=== PATIENT | female | born 1975 | race Caucasian/White ===

== ENCOUNTER 2017-03-12 17:56 | Emergency (ER) | payer SELFPAY ==
[2017-03-12] MEDS ORDERED: ONDANSETRON 4 MG TAB.RAPDIS PO ONE (18:15)
[2017-03-12] MEDS ORDERED: OXYCODONE-ACETAMINOPHEN 5-325 MG TABLET PO ONE (18:15)
--- NOTE | 2017-03-12 18:15 | ER Document Report ---
HPI - HPI Patient complains to provider of: Back pain Onset: This afternoon - 3:30 PM Onset/Duration: Sudden Pain Level: 5 Context: 41-year-old female with a history of chronic back pain exacerbated her back pain "tweaking it" at 3:30 PM today when she did heavy lifting of crates full of beer. She takes naproxen or Motrin for pain on a daily basis. There is no saddle anesthesia or radiculopathy. No fever. No IV drug use. She had compression fractures of T67 on June 2016 doing the same type of work. The pain that she feels today is above the coccyx Associated Symptoms: None Exacerbated by: Movement Relieved by: Denies Similar symptoms previously: Yes Recently seen / treated by doctor: No - ROS ROS below otherwise negative: Yes Systems Reviewed and Negative: Yes All other systems reviewed and negative - REPRODUCTIVE Reproductive: DENIES: : - DERM Skin Color: Normal Past Medical History - General Information source: Patient - Social History Smoking Status: Current Every Day Smoker Frequency of alcohol use: Heavy Drug Abuse: Marijuana Lives with: Spouse/Significant other Family History: Reviewed & Not Pertinent Patient has suicidal ideation: No Patient has homicidal ideation: No Pulmonary Medical History: Reports: Hx Asthma, Hx COPD Renal/ Medical History: Reports: Hx Kidney Stones. Denies: Hx Peritoneal Dialysis Traumatic Medical History: Reports: Hx Fractures - C6C7, BACK IN 3 SPOTS, Hx Traumatic Brain Injury Past Surgical History: Reports: Hx Section, Hx Kidney (Renal Surgery), Hx Orthopedic Surgery, Hx Tubal Ligation - Immunizations Hx Diphtheria, Pertussis, Tetanus Vaccination: Yes Vertical Provider Document - CONSTITUTIONAL Agree With Documented VS: Yes Exam Limitations: No Limitations - INFECTION CONTROL TRAVEL OUTSIDE OF THE [place] IN LAST 30 DAYS: No - HEENT HEENT: Atraumatic, Normocephalic - NECK Neck: Supple - RESPIRATORY Respiratory: Breath Sounds Normal, No Respiratory Distress O2 Sat by Pulse Oximetry: 96 - CARDIOVASCULAR Cardiovascular: Regular Rate, Regular Rhythm - GI/ABDOMEN Gastrointestinal: Abdomen Soft, Abdomen Non-Tender - MUSCULOSKELETAL/EXTREMETIES Musculoskeletal/Extremeties: MACY FROM Notes: supine, holding her body muscles tense with flexed knees in pain - NEURO Level of Consciousness: Awake, Alert Motor/Sensory: No Motor Deficit, No Sensory Deficit Deep Tendon Reflexes: 2+ - Bilateral ankle and patellar - DERM Integumentary: Warm, Dry, No Rash Course - Re-evaluation Re-evalutation: 03/12/17 19:37 X-ray shows decreased disc space height between L4-L5 radiology. 03/12/17 19:44 pain 3/5 now, feels better. Has been upt to bathroom - Vital Signs Vital signs: Temp Pulse Resp BP Pulse Ox 98.1 F 96 18 148/85 H 96 03/12/17 18:03 03/12/17 18:03 03/12/17 18:03 03/12/17 18:03 03/12/17 18:03 Discharge - Discharge Clinical Impression: Lumbar back sprain Qualifiers: Encounter type: initial encounter Qualified Code(s): S33.5XXA - Sprain of ligaments of lumbar spine, initial encounter Instructions: Low Back Pain ([facility]), Muscle Relaxers ([facility]), Muscle Strain ([facility]), Warm Packs ([facility]), Oral Narcotic Medication ([facility]), Anti-Inflammatory Medication ( [facility]) Additional Instructions: warm compress to er if worse see orhtopedic doctor if persists Please complete the patient satisfaction survey if you get one, and return it.. If you do not receive a survey, then you can go to the [facility] website, [email or web address] and place your comments about your very good care. Thank you very much. It was a pleasure being your medical provider today. Prescriptions: Ibuprofen [Motrin 800 mg Tablet] 800 mg PO Q8HP PRN #30 tablet PRN Reason: Cyclobenzaprine HCl [Flexeril 10 Mg Tablet] 10 mg PO TIDP PRN #20 tablet PRN Reason: Oxycodone HCl/Acetaminophen [Percocet 5-325 mg Tablet] 1 - 2 tab PO ASDIR PRN # 15 tablet PRN Reason: Forms: Return to Work Referrals: MALAIKA BEDOLLA MD [NO LOCAL MD] - Follow up as needed
[2017-03-12] MEDS ORDERED: CYCLOBENZAPRINE HCL 10 MG TABLET PO ONE (18:17)
--- NOTE | 2017-03-12 19:31 | RADIOLOGY REPORT (SQ) ---
EXAM DESCRIPTION: L SPINE WHOLE COMPLETED DATE/TIME: 03/12/2017 7:12 pm REASON FOR STUDY: pain after heavy lifting COMPARISON: None. NUMBER OF VIEWS: Five views including obliques. TECHNIQUE: AP, lateral, oblique, and sacral radiographic images acquired of the lumbar spine. LIMITATIONS: None. FINDINGS: MINERALIZATION: Normal. SEGMENTATION: Normal. No transitional anatomy. ALIGNMENT: Normal. VERTEBRAE: Maintained height. No fracture or worrisome bone lesion. DISCS: There is some mild decrease in the L4-L5 disc space height. POSTERIOR ELEMENTS: Pedicles and facets are intact. No pars defect or posterior arch defects. HARDWARE: None in the spine. PARASPINAL SOFT TISSUES: Normal. PELVIS: Intact as visualized. No fractures or worrisome bone lesions. SI joints intact. OTHER: No other significant finding. IMPRESSION: Mild decrease in the L4-L5 disc space height. No other significant findings TECHNICAL DOCUMENTATION: JOB ID: [id number] [facility]- All Rights Reserved
[2017-03-12 19:54] VITALS: BP 130/78
== END 2017-03-12 19:52 | disposition home or self-care (01) ==
LOC: ER 17:56
DX: S33.5XXA Sprain of ligaments of lumbar spine, initial encounter (principal); M54.9 Dorsalgia, unspecified; G89.29 Other chronic pain; X58.XXXA Exposure to other specified factors, initial encounter
CPT/HCPCS: 99283; 72110; S0119

== ENCOUNTER 2017-09-28 09:47 | Emergency (ER) | payer SELFPAY ==
[2017-09-28] MEDS ORDERED: NORMAL SALINE 1000 ML 1,000 ML IV ONE (10:06)
--- NOTE | 2017-09-28 10:08 | ER Document Report ---
ED Medical Screen (RME) - General Chief Complaint: Flu Symptoms Stated Complaint: FLU SYMPTOMS Time Seen by Provider: 09/28/17 10:05 Mode of Arrival: Ambulatory Information source: Patient TRAVEL OUTSIDE OF THE [place] IN LAST 30 DAYS: No - HPI Patient complains to provider of: flu symptoms Onset: Yesterday - pt with c/o cough, fever, chills. Thinks she may be dehydrated - Related Data Allergies/Adverse Reactions: No Known Allergies Allergy (Verified 09/28/17 09:54) Past Medical History - Social History Chew tobacco use (# tins/day): No Frequency of alcohol use: Occasional Drug Abuse: Marijuana Pulmonary Medical History: Reports: Hx Asthma, Hx COPD Renal/ Medical History: Reports: Hx Kidney Stones. Denies: Hx Peritoneal Dialysis Traumatic Medical History: Reports: Hx Fractures - C6C7, BACK IN 3 SPOTS, Hx Traumatic Brain Injury Past Surgical History: Reports: Hx Section, Hx Kidney (Renal Surgery), Hx Orthopedic Surgery, Hx Tubal Ligation - Immunizations Hx Diphtheria, Pertussis, Tetanus Vaccination: Yes
[2017-09-28] MEDS ORDERED: KETOROLAC TROMETHAMINE INJ/PF 30 MG/1 ML SDV IV ONE (10:52)
[2017-09-28] MEDS ORDERED: ONDANSETRON HCL INJ/PF 4 MG/2 ML SDV IV ONE (10:52)
--- NOTE | 2017-09-28 10:57 | RADIOLOGY REPORT (SQ) ---
EXAM DESCRIPTION: CHEST PA/LAT COMPLETED DATE/TIME: 09/28/2017 10:50 am REASON FOR STUDY: cough COMPARISON: 02/13/2014. EXAM PARAMETERS: NUMBER OF VIEWS: two views TECHNIQUE: Digital Frontal and Lateral radiographic views of the chest acquired. RADIATION DOSE: NA LIMITATIONS: none FINDINGS: LUNGS AND PLEURA: Indistinct density in the medial right upper lobe with vague nodularity in the right apex. Left lung clear. No pleural effusion or pneumothorax. MEDIASTINUM AND HILAR STRUCTURES: No masses or contour abnormalities. HEART AND VASCULAR STRUCTURES: Heart normal size. No evidence for failure. BONES: No acute findings. HARDWARE: None in the chest. OTHER: No other significant finding. IMPRESSION: POSSIBLE INFILTRATE AND/OR MASS IN THE RIGHT UPPER LOBE. RECOMMEND FOLLOW-UP WITH CT OF THE CHEST. TECHNICAL DOCUMENTATION: JOB ID: [id number] [employer]- All Rights Reserved
[2017-09-28 10:58] LABS: ABSOLUTE LYMPHOCYTES (AUTO) 0.5 10^3/uL (0.5-4.7); ABSOLUTE MONOCYTES (AUTO) 0.6 10^3/uL (0.1-1.4); ABSOLUTE NEUT (AUTO) 2.9 10^3/uL (1.7-8.2); BASOPHILS % (AUTO) 0.3 % (0-2); EOSINOPHILS % (AUTO) 0.1 % (0-6); HEMATOCRIT 41.7 % (36.0-47.0); HEMOGLOBIN 14.4 g/dL (12.0-15.5); LYMPHOCYTES % (AUTO) 13.5 % (13-45); MEAN CORPUSCULAR HEMOGLOBIN 32.9 pg (27.0-33.4); MEAN CORPUSCULAR HGB CONC 34.6 g/dL (32.0-36.0); MEAN CORPUSCULAR VOLUME 95 fl (80-97); MONOCYTES % (AUTO) 13.7 % (3-13); PLATELET COUNT 160 10^3/uL (150-450); RED BLOOD COUNT 4.38 10^6/uL (3.72-5.28); RED CELL DISTRIBUTION WIDTH 12.7 % (11.5-14.0); SEGMENTED NEUTROPHILS % (AUTO) 72.4 % (42-78); TOTAL CELLS COUNTED % (AUTO) 100 %; WHITE BLOOD COUNT 4.1 10^3/uL (4.0-10.5)
[2017-09-28 11:04] LABS: ALANINE AMINOTRANSFERASE 22 U/L (9-52); ALBUMIN 4.3 g/dL (3.5-5.0); ALKALINE PHOSPHATASE 41 U/L (38-126); ANION GAP 8 (5-19); ASPARTATE AMINO TRANSFERASE 33 U/L (14-36); BILIRUBIN,DIRECT 0.6 mg/dL (0.0-0.4); BILIRUBIN,TOTAL 0.7 mg/dL (0.2-1.3); BLOOD UREA NITROGEN 9 mg/dL (7-20); CALCIUM 9.6 mg/dL (8.4-10.2); CARBON DIOXIDE 23 mmol/L (22-30); CHLORIDE 105 mmol/L (98-107); GLUCOSE 95 mg/dL (75-110); POTASSIUM 4.2 mmol/L (3.6-5.0); SODIUM 136.3 mmol/L (137-145); TOTAL PROTEIN 7.2 g/dL (6.3-8.2)
--- NOTE | 2017-09-28 11:08 | ER Document Report ---
ED General - General Chief Complaint: Flu Symptoms Stated Complaint: FLU SYMPTOMS Time Seen by Provider: 09/28/17 10:05 Mode of Arrival: Ambulatory Information source: Patient Notes: Patient presents emergency department with flulike symptoms for the past few days. Patient reports nausea vomiting diarrhea and headache. Denies fever. Reports she is does not believe in the flu vaccine. Works at [email or web address]. Patient reports her whole body hurts. She reports she attempted to eat twice yesterday but was unable to. TRAVEL OUTSIDE OF THE [place] IN LAST 30 DAYS: No - HPI Onset: Other Onset/Duration: Persistent Quality of pain: Achy Severity: Severe Pain Level: 4 Associated symptoms: Diarrhea, Nausea, Vomiting Exacerbated by: Denies Relieved by: Denies Similar symptoms previously: No Recently seen / treated by doctor: No - Related Data Allergies/Adverse Reactions: No Known Allergies Allergy (Verified 09/28/17 09:54) Past Medical History - General Information source: Patient Last Menstrual Period: 09/04/17 - Social History Smoking Status: Current Every Day Smoker Cigarette use (# per day): Yes Chew tobacco use (# tins/day): No Smoking Education Provided: Yes Frequency of alcohol use: Occasional Drug Abuse: Marijuana Occupation: [employer] Lives with: Friend Family History: Reviewed & Not Pertinent Patient has suicidal ideation: No Patient has homicidal ideation: No Pulmonary Medical History: Reports: Hx Asthma, Hx COPD Renal/ Medical History: Reports: Hx Kidney Stones. Denies: Hx Peritoneal Dialysis Traumatic Medical History: Reports: Hx Fractures - C6C7, BACK IN 3 SPOTS, Hx Traumatic Brain Injury Past Surgical History: Reports: Hx Section, Hx Kidney (Renal Surgery), Hx Orthopedic Surgery, Hx Tubal Ligation - Immunizations Hx Diphtheria, Pertussis, Tetanus Vaccination: Yes History of Influenza Vaccine for 05/2017 - 10/2017 Season: No Review of Systems - Review of Systems Notes: Review HPI for review of systems., All other systems negative Physical Exam - Vital signs Vitals: Temp Pulse Resp BP Pulse Ox 100.8 F H 109 H 22 H 132/86 H 94 09/28/17 09:56 09/28/17 09:56 09/28/17 09:56 09/28/17 09:56 09/28/17 09:56 - Notes Notes: PHYSICAL EXAMINATION: GENERAL: Looks like she doesn't feel well, nontoxic looking HEAD: Atraumatic, normocephalic. EYES: Pupils equal round extraocular movements intact, sclera anicteric, conjunctiva are normal. ENT: nares patent, Moist mucous membranes. NECK: Normal range of motion, supple without lymphadenopathy LUNGS: CTAB and equal. No wheezes rales or rhonchi. HEART: Regular rate and rhythm without murmurs ABDOMEN: Soft, no tenderness. No guarding, no rebound EXTREMITIES: Normal range of motion, no pitting edema. No cyanosis. NEUROLOGICAL: Cranial nerves grossly intact. Normal sensory/motor exams. PSYCH: Normal mood, normal affect. SKIN: Warm, Dry, normal turgor, no rashes or lesions noted Course - Re-evaluation Re-evalutation: 09/28/17 11:05 Fluids going, torodol and zofran ordered. 09/28/17 12:43 Drinking p.o. fluids, labs unremarkable 09/28/17 13:14 Taking p.o. fluids no further vomiting. Patient will be discharged home with antinausea medicine instructed on pushing fluids. CT of chest 7mm nodule, possible focal scarring. pt to be instructed on importance of fu, recheck - Vital Signs Vital signs: Temp Pulse Resp BP Pulse Ox 99.3 F 78 22 H 105/69 97 09/28/17 13:50 09/28/17 13:50 09/28/17 13:20 09/28/17 13:50 09/28/17 13:50 100.8- 109- 132/86, 22 94% - Laboratory Result Diagrams: 09/28/17 10:24 09/28/17 10:24 Laboratory results interpreted by me: 09/28/17 09/28/17 09/28/17 10:24 10:24 11:35 Monocytes % 13.7 H Sodium 136.3 L Direct Bilirubin 0.6 H Urine Protein 30 H Urine Ketones TRACE H Urine Blood SMALL H Ur Leukocyte Esterase TRACE H - Diagnostic Test Radiology reviewed: Image reviewed, Reports reviewed Discharge - Discharge Clinical Impression: Flu-like symptoms, Nausea vomiting and diarrhea Condition: Stable Disposition: HOME, SELF-CARE Instructions: Acetaminophen, Antinausea Medication ([facility]), Diarrhea, Nonspecific ([facility]), Influenza ([facility]), Intravenous (IV) Fluids ([facility]), Vomiting ([facility] ) Additional Instructions: *You have been evaluated for flu like symptoms, headache, nausea vomiting diarrhea *Increase fluid intake as discussed *Take medication as prescribed *Monitor your temperature, take Tylenol as indicated *Take over the counter anti diarrheal as indicated *Stop smoking *Follow up with a primary care provider within 3 days *A7mm nodule was discovered on your CT of the chest. This appears to be due to scarring. You will need a repeat chest xray within 6 months. Follow up with a primary care provider for recheck and evaluation. *Return to ED for worsening condition, changes, needs, concerns. Monitor your blood pressure. Your blood pressure was elevated today. This may be because you were anxious, in pain or because you need medication. It is important to follow up with your primary care provider for full evaluation. Prescriptions: Ondansetron [Zofran Odt 4 mg Tablet] 1 - 2 tab PO Q4H #10 tab.rapdis Forms: Elevated Blood Pressure, Smoking Cessation Education, Return to Work
--- NOTE | 2017-09-28 12:33 | RADIOLOGY REPORT (SQ) ---
EXAM DESCRIPTION: CT CHEST WITH COMPLETED DATE/TIME: 09/28/2017 12:10 pm REASON FOR STUDY: ?mass COMPARISON: Chest x-ray dated 09/28/2017. TECHNIQUE: CT scan of the chest performed using helical scanning technique with dynamic intravenous contrast injection. Images reviewed with lung, soft tissue and bone windows. Reconstructed coronal and sagittal MPR images reviewed. Additional 3 dimensional post-processing performed to develop Maximal Intensity Projection images (GA P). All images stored on PACS. All CT scanners at this facility use dose modulation, iterative reconstruction, and/or weight based d osing when appropriate to reduce radiation dose to as low as reasonably achievable (ALARA). [facility]: Dose Right [facility]: CareDose [facility]: Dose Right [facility]: Teradose 4D [facility]: [employer] CONTRAST TYPE AND DOSE: contrast/concentration: Isovue 370.00 mg/ml; Total Contrast Delivered: 80.0 ml; Total Saline Delivered: 55.0 ml Contrast bolus adequate for pulmonary arteries and aorta. RENAL FUNCTION: BUN 9 creatinine 0.92. RADIATION DOSE: CT Rad equipment meets quality standard of care and radiation dose reduction techniq ues were employed. CTDIvol: 5.0 mGy. DLP: 213 mGy-cm. . LIMITATIONS: None. FINDINGS: LUNGS AND PLEURA: Minimal scarring in the lung apices. 7 mm nodule in the lateral right u pper lobe. No focal infiltrate. No pleural effusion or pleural thickening. No pneumothorax. AORTA AND GREAT VESSELS: No aneurysm. No dissection. HEART: No pericardial effusion. No significant coronary artery calcifications. PULMONARY ARTERIES: No emboli visualized in the main pulmonary arteries or the segmental branches. HILAR AND MEDIASTINAL STRUCTURES: No identified masses or abnormal nodes. HARDWARE: None in the chest. UPPER ABDOMEN: No significant findings. Limited exam. THYROID AND OTHER SOFT TISSUES: No masses. No adenopathy. BONES: No acute or significant finding. 3D MIPS: Confirm above findings. OTHER: No other significant finding. IMPRESSION: 1. MINIMAL SCARRING IN THE LUNG APICES. 7 MM NODULE IN THE LATERAL RIGHT UPPER LOBE. THIS MAY REPRE SENT A FOCAL AREA OF SCARRING. FOLLOW-UP CLINICALLY INDICATED. 2. NO MASS OR INFILTRATE IN THE MEDIAL RIGHT UPPER LOBE/RIGHT PARATRACHEAL REGION. THE FINDING ON TH E CHEST X-RAY IS PRESUMABLY ARTIFACT DUE TO OVERLYING SOFT TISSUE. COMMENT: F[place]ISCHNER CRITERIA FOR FOLLOW-UP OF PULMONARY NODULES Incidentally detected new nodules in persons 35 or older. HIGH RISK: History of smoking or other known risk factors. 6-8mm single solid nodule: LOW RISK: CT 6-12 mo; then consider CT 18-24 mo. HIGH RISK: CT 6-12 mo; th en CT 18-24 mo. Quality ID # [id number]: Final reports with documentation of one or more dose reduction techniques (e.g., Au tomated exposure control, adjustment of the mA and/or kV according to patient size, use of iterative reconstruction technique) TECHNICAL DOCUMENTATION: JOB ID: [id number] [facility] [employer]- All Rights Reserved
[2017-09-28 12:45] LABS: APPEARANCE,URINE SLIGHTLY-CLOUDY; BILIRUBIN,URINE NEGATIVE (NEGATIVE); COLOR,URINE YELLOW; GLUCOSE, URINE NEGATIVE (NEGATIVE); KETONES,URINE TRACE mg/dL (NEGATIVE); LEUKOCYTE ESTERASE,URINE TRACE (NEGATIVE); NITRITE,URINE NEGATIVE (NEGATIVE); PROTEIN,URINE 30 mg/dL (NEGATIVE); URINE SPECIFIC GRAVITY 1.016; UROBILINOGEN,URINE NEGATIVE mg/dL (<2.0)
[2017-09-28] MEDS ORDERED: HYDROCODONE/ACETAMINOPHEN 5-325 MG (6 TAB/ER DISP) PO PRN (13:30)
[2017-09-28 14:18] VITALS: BP 132/86
== END 2017-09-28 14:19 | disposition home or self-care (01) ==
LOC: ER 09:47
DX: R11.2 Nausea with vomiting, unspecified (principal); R19.7 Diarrhea, unspecified; R51 Headache; F17.210 Nicotine dependence, cigarettes, uncomplicated; J44.9 Chronic obstructive pulmonary disease, unspecified; Z87.442 Personal history of urinary calculi; Z98.51 Tubal ligation status
CPT/HCPCS: 99284; 96361; 96374; 96375; 36415; 85025; 80053; 81001; 71046; 71260; J1885; J2405; J7030

== ENCOUNTER 2018-07-06 17:36 | Emergency (ER) | payer SELFPAY ==
[2018-07-06] MEDS ORDERED: HYDROCODONE/ACETAMINOPHEN 5-325 MG TABLET PO ONE (19:46)
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
[2018-07-06 20:21] LABS: ABSOLUTE EOSINOPHILS # (AUTO) 0.3 10^3/uL (0.0-0.6); ABSOLUTE LYMPHOCYTES (AUTO) 3.3 10^3/uL (0.5-4.7); ABSOLUTE MONOCYTES (AUTO) 0.4 10^3/uL (0.1-1.4); ABSOLUTE NEUT (AUTO) 2.9 10^3/uL (1.7-8.2); BASOPHILS % (AUTO) 0.4 % (0-2); EOSINOPHILS % (AUTO) 3.9 % (0-6); HEMATOCRIT 40.2 % (36.0-47.0); HEMOGLOBIN 14.1 g/dL (12.0-15.5); LYMPHOCYTES % (AUTO) 47.8 % (13-45); MEAN CORPUSCULAR HEMOGLOBIN 33.5 pg (27.0-33.4); MEAN CORPUSCULAR VOLUME 96 fl (80-97); MONOCYTES % (AUTO) 5.5 % (3-13); PLATELET COUNT 274 10^3/uL (150-450); RED CELL DISTRIBUTION WIDTH 12.1 % (11.5-14.0); SEGMENTED NEUTROPHILS % (AUTO) 42.4 % (42-78); TOTAL CELLS COUNTED % (AUTO) 100 %; WHITE BLOOD COUNT 6.9 10^3/uL (4.0-10.5)
--- NOTE | 2018-07-06 20:42 | RADIOLOGY REPORT (SQ) ---
EXAM DESCRIPTION: FOOT LEFT COMPLETE COMPLETED DATE/TIME: 07/06/2018 8:33 pm REASON FOR STUDY: Foreign body in heel COMPARISON: None. NUMBER OF VIEWS: Three views. TECHNIQUE: AP, lateral and oblique radiographic images acquired of the left foot. LIMITATIONS: None. FINDINGS: MINERALIZATION: Normal. BONES: No acute fracture or dislocation. No worrisome bone lesions. JOINTS: No effusions. SOFT TISSUES: There is a tiny radiodensity in the area of clinical concern. Possible retained sliver glass. OTHER: No other significant finding. IMPRESSION: Possible glass foreign body in the area of clinical concern. COMMENT: Recommend ultrasound. TECHNICAL DOCUMENTATION: JOB ID: [id number]- All Rights Reserved Reading location - IP/workstation name: [email or web address]
[2018-07-06] MEDS ORDERED: DIPH/PERTUSS(ACELL)/TETANUS VAC/PF 0.5 ML SYR (>=10YO) IM ONE (21:12)
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
[2018-07-06 22:24] VITALS: BP 95/52
== END 2018-07-06 22:31 | disposition home or self-care (01) ==
LOC: ER 17:36
DX: S90.852A Superficial foreign body, left foot, initial encounter (principal); L03.116 Cellulitis of left lower limb; M79.672 Pain in left foot; W45.8XXA Other foreign body or object entering through skin, initial encounter; J44.9 Chronic obstructive pulmonary disease, unspecified; F17.210 Nicotine dependence, cigarettes, uncomplicated
CPT/HCPCS: 36415; 85025; 90471; 90715; 99284

== ENCOUNTER 2018-07-09 10:18 | Day surgery (SDC) | payer SELFPAY ==
[2018-07-09] MEDS ORDERED: CEFAZOLIN 1 GM/D5W RTU 1 GM/50 ML RTUPB IV ONE (10:28)
[2018-07-09 10:46] LABS: HEMATOCRIT 42.8 % (36.0-47.0); MEAN CORPUSCULAR HEMOGLOBIN 33.9 pg (27.0-33.4); MEAN CORPUSCULAR HGB CONC 34.9 g/dL (32.0-36.0); MEAN CORPUSCULAR VOLUME 97 fl (80-97); PLATELET COUNT 263 10^3/uL (150-450); RED BLOOD COUNT 4.41 10^6/uL (3.72-5.28); RED CELL DISTRIBUTION WIDTH 12.2 % (11.5-14.0); WHITE BLOOD COUNT 7.3 10^3/uL (4.0-10.5)
[2018-07-09] MEDS ORDERED: RINGERS SOLUTION,LACTATED 1,000 ML IV PRN (11:32)
[2018-07-09] MEDS ORDERED: MIDAZOLAM 2 MG/2 ML INJ ONE (11:42)
[2018-07-09] MEDS ORDERED: FENTANYL CITRATE INJ/PF 100 MCG/2 ML AMPUL ONE (11:42)
[2018-07-09] MEDS ORDERED: PROPOFOL INJ 200 MG/20 ML VIAL IV ONE (11:43)
[2018-07-09] MEDS ORDERED: LIDOCAINE 1% INJ-PF (10 MG/ML) 30 ML SDV ONE (12:01)
[2018-07-09] MEDS ORDERED: MEPERIDINE HCL/PF INJ 25 MG/1 ML DISP.SYRIN IV PRN (12:07)
[2018-07-09] MEDS ORDERED: ONDANSETRON HCL INJ/PF 4 MG/2 ML SDV IV PRN (12:07)
[2018-07-09] MEDS ORDERED: DIPHENHYDRAMINE HCL 50 MG/ML VIAL IV PRN (12:07)
[2018-07-09] MEDS ORDERED: PROMETHAZINE HCL INJ 25 MG/1 ML VIAL IV PRN ×2 (12:07)
[2018-07-09] MEDS ORDERED: MORPHINE SULFATE 10 MG/ML INJ IV PRN (12:07)
[2018-07-09] MEDS ORDERED: OXYCODONE-ACETAMINOPHEN 5-325 MG TABLET PO PRN ×3 (12:07→12:32)
[2018-07-09] MEDS ORDERED: FENTANYL CITRATE INJ/PF 100 MCG/2 ML AMPUL IV PRN ×3 (12:07)
--- NOTE | 2018-07-09 12:32 | Discharge Summary ---
Discharge Summary (SDC) - Discharge Final Diagnosis: foreign body left foot Date of Surgery: 07/09/18 Discharge Date: 07/09/18 Condition: Stable Treatment or Instructions: WOUND CARE: Leave foot wrapped for 24 hours. May remove wrap after 24 hours but leave dressing beneath intact for three days. After three days you may remove the dressing and shower with warm water and soap, pat area dry, cover with gauze and wrap with piotr wrap. If dressing becomes dirty or moist, change dressing. PAIN MANAGEMENT: You may take Toradol 10mg one pill by mouth every six hours as needed for pain. FOLLOW UP; You may follow up at [facility] in 10 days. Call clinic sooner with questions/concerns. If Unable to reach clinic due to holiday hours, please call hospital and speak with surgicalist. Prescriptions: Ketorolac Tromethamine [Toradol 10 mg Tablet] 10 mg PO Q6HP PRN #20 tablet PRN Reason: Discharge Diet: As Tolerated Discharge Activity: Activity As Tolerated Report the Following to Your Physician Immediately: Fever over 101 Degrees, Unusual Bleeding, Redness, Swelling, Warmth, Drainage-Foul Smelling
[2018-07-09] MEDS: FENTANYL CITRATE INJ/PF 100 MCG/2 ML AMPUL ONE ×2 (12:42→12:47)
--- NOTE | 2018-07-09 13:08 | RADIOLOGY REPORT (SQ) ---
EXAM DESCRIPTION: OS CALCIS/HEEL LEFT; NO CHG FLUORO COMPLETED DATE/TIME: 07/09/2018 12:54 pm REASON FOR STUDY: FOREIGN BODY REMOVAL IN OR COMPARISON: Foot films 07/06/2018 FLUOROSCOPY TIME: 3 seconds 6 fluoroscopic digital images saved to PACS. TECHNIQUE: Intra-operative images acquired during surgical procedure to evaluate progress. NUMBER OF IMAGES: 6 fluoroscopic digital images are saved to pac's LIMITATIONS: None. FINDINGS: Fluoroscopic digital images of the patient's left heel demonstrate no gross retained radio paque foreign body. Specimen radiographs of the excised tissue are submitted which are nondiagnostic . Please see the operative report for further details. IMPRESSION: Intra procedural imaging and fluoro COMMENT: Quality ID [id number]: Final reports for procedures using fluoroscopy that document radiation exp osure indices, or exposure time and number of fluorographic images (if radiation exposure indices are not available) Please consult full operative report of the attending physician for description of the procedure. TECHNICAL DOCUMENTATION: JOB ID: [id number] [employer]- All Rights Reserved Reading location - IP/workstation name: [email or web address]
--- NOTE | 2018-07-09 13:08 | RADIOLOGY REPORT (SQ) ---
EXAM DESCRIPTION: OS CALCIS/HEEL LEFT; NO CHG FLUORO COMPLETED DATE/TIME: 07/09/2018 12:54 pm REASON FOR STUDY: FOREIGN BODY REMOVAL IN OR COMPARISON: Foot films 07/06/2018 FLUOROSCOPY TIME: 3 seconds 6 fluoroscopic digital images saved to PACS. TECHNIQUE: Intra-operative images acquired during surgical procedure to evaluate progress. NUMBER OF IMAGES: 6 fluoroscopic digital images are saved to pac's LIMITATIONS: None. FINDINGS: Fluoroscopic digital images of the patient's left heel demonstrate no gross retained radio paque foreign body. Specimen radiographs of the excised tissue are submitted which are nondiagnostic . Please see the operative report for further details. IMPRESSION: Intra procedural imaging and fluoro COMMENT: Quality ID [id number]: Final reports for procedures using fluoroscopy that document radiation exp osure indices, or exposure time and number of fluorographic images (if radiation exposure indices are not available) Please consult full operative report of the attending physician for description of the procedure. TECHNICAL DOCUMENTATION: JOB ID: [id number] [employer]- All Rights Reserved Reading location - IP/workstation name: [email or web address]
[2018-07-09] MEDS ORDERED: OXYCODONE-ACETAMINOPHEN 5-325 MG TABLET ONE (13:27)
[2018-07-09 14:43] VITALS: BP 99/60
--- NOTE | 2018-07-17 11:15 | Operative Report ---
Operative Report DATE OF SURGERY: 07/09/18 PREOPERATIVE DIAGNOSIS: Retained foreign body left foot POSTOPERATIVE DIAGNOSIS: Same OPERATION: Excisional debridement of skin and soft tissue plug plantar surface left foot. Interpretation of intraoperative imaging SURGEON: CAROLYNE HELM 1ST WRAPPER STITCHER: JUAN MCGINNIS ANESTHESIA: LMAC TISSUE REMOVED OR ALTERED: Plug of skin and soft tissue undersurface left foot COMPLICATIONS: none ESTIMATED BLOOD LOSS: scant INTRAOPERATIVE FINDINGS: see below PROCEDURE: Patient was taken from the preop holding area the main operating room where LMAC anesthesia was induced. The left foot was prepped and draped in sterile fashion. Surgical plan surgical timeout conducted. The center of the plantar surface of the medial aspect of the left foot was a small hypopigmented area approximately 4 mm in diameter, presumably the site of the foreign body entry site. This area of the foot was anesthetized 1% plain lidocaine. #15 blade was used to excise a plug of skin and subcutaneous tissue. Of note prior to application of anesthesia, the foot was imaged with fluoroscopy and no satya foreign body could be detected. The plug of tissue removed from the left foot was imaged in the operating room using the fluoroscopy equipment. Again no foreign body could be detected. Conclusion images of the foot were interpreted by Dr. Diaz, radiologist, as having no retained foreign body. At this point felt the operation was complete. Xeroform 4 x 4's and Kerlix applied. Patient taught procedure well.
== END 2018-07-09 14:35 | disposition home or self-care (01) ==
LOC: OROUT 10:18
PROVIDERS: ATTEND Surgery
DX: J44.9 Chronic obstructive pulmonary disease, unspecified (principal); F17.210 Nicotine dependence, cigarettes, uncomplicated; I10 Essential (primary) hypertension; M79.5 Residual foreign body in soft tissue
CPT/HCPCS: 36415; 84703; 85027; 88304 ×2; 73650; 11042; J2250; J0690; J3010; J3490; J2704; 01470

== ENCOUNTER 2018-12-04 11:22 | Emergency (ER) | payer OTHER ==
[2018-12-04] MEDS ORDERED: HYDROMORPHONE HCL INJ/PF 2 MG/ML AMPULE IM ONE (13:04)
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
--- NOTE | 2018-12-04 16:25 | RADIOLOGY REPORT (SQ) ---
EXAM DESCRIPTION: MRI LUMBAR SPINE WITHOUT COMPLETED DATE/TIME: 12/04/2018 4:14 pm REASON FOR STUDY: Acute weakness and pain COMPARISON: None. TECHNIQUE: Sagittal and Axial imaging includes T1, T2, STIR and gradient echo sequences. Coronal T2/ HASTE imaging. LIMITATIONS: None. FINDINGS: VISUALIZED UPPER ABDOMEN: Limited evaluation. No acute or suspicious findings suggested. SEGMENTATION: No transitional anatomy. The lowest well-developed disc space is labeled L5-S1. ALIGNMENT: Anatomic. VERTEBRAE: Intact. BONE MARROW: Normal. No marrow replacement or reactive changes. There is a small lipoma in the body of L5. DISC SIGNAL: There is loss of normal water signal at L4-L5 and L5-S1. POSTERIOR ELEMENTS: Generally intact. No pars defect evident. HARDWARE: None in the spine. CORD AND CONUS: Normal in size and signal intensity. Conus at the appropriate level. SOFT TISSUES: No aortic aneurysm seen. No bulky retroperitoneal adenopathy or mass. No paraspinal mas s or fluid. L1-L2: No significant spinal stenosis or exit foraminal stenosis. L2-L3: No significant spinal stenosis or exit foraminal stenosis. L3-L4: No significant spinal stenosis or exit foraminal stenosis. L4-L5: Minimal annular bulging. No central stenosis or foraminal narrowing. L5-S1: Mild annular disc bulging. No central stenosis or nerve root impingement. LOWER THORACIC: Incompletely imaged. No stenosis seen. SACRUM: Visualized upper sacrum intact. OTHER: No other significant findings. IMPRESSION: Mild desiccation at L4-L5 and L5-S1. No acute findings. TECHNICAL DOCUMENTATION: JOB ID: [id number] [employer]- All Rights Reserved Reading location - IP/workstation name: [email or web address]
[2018-12-04] MEDS ORDERED: LIDOCAINE 5% (700 MG) TRANSDERMAL ADH..PATCH TP ONE (17:10)
[2018-12-04 17:14] VITALS: BP 131/66
== END 2018-12-04 17:20 | disposition home or self-care (01) ==
LOC: ER 11:22
DX: M54.41 Lumbago with sciatica, right side (principal); M54.9 Dorsalgia, unspecified; M79.604 Pain in right leg; F17.200 Nicotine dependence, unspecified, uncomplicated; I10 Essential (primary) hypertension; J44.9 Chronic obstructive pulmonary disease, unspecified
CPT/HCPCS: 99283; 96372; 72148; J1170

== ENCOUNTER → 2019-05-12 | Outpatient (CLI) | payer SELFPAY ==
--- NOTE | 2019-05-12 16:31 | XCELERA REPORT ---
[address] [facility] [facility] [address] Lower Extremity Venous Evaluation Procedure: Color flow and duplex imaging of the veins of the left lower extremity as well as the right Common Femoral vein. Right Sided Venous Evaluation The right common femoral vein is fully compressible. Spontaneous and phasic flow is present in the right common femoral vein. Left Sided Venous Evaluation Normal vessel filling wall to wall, compression and augmentation as well as Colour flow down to the infrageniculate veins. Interpretation Summary No duplex evidence of DVT or obstruction in the left lower extremity nor in the right Common Femoral vein. Name: ADENIKE SKELTON Age: 44 yrs Gender: Female : 1975 Patient Status: Outpatient Patient Location: Study Date: 05/12/2019 02:27 PM Reason For Study: LLE CALF PAIN Ordering Physician: JUAN LIM Performed By: Demetria Whitfield : JUAN LIM > Hubert Washington
== END ==
LOC: SP 13:37
PROVIDERS: ATTEND Nurse Practitioner Family
DX: M79.662 Pain in left lower leg (principal)
CPT/HCPCS: 93971

== ENCOUNTER 2019-12-05 04:12 | Emergency (ER) | payer BC ==
--- NOTE | 2019-12-05 05:09 | RADIOLOGY REPORT (SQ) ---
EXAM DESCRIPTION: XR LUMBAR SPINE ANTEROPOSTERIOR, LATERAL, AND OBLIQUES COMPLETED DATE/TME: 12/05/2019 04:27 CLINICAL HISTORY: 44 years, Female, PAIN COMPARISON: 03/12/2017 lumbar spine NUMBER OF VIEWS: 5 TECHNIQUE: 5 view lumbar spine LIMITATIONS: None. FINDINGS: 5 lumbar type vertebral bodies. Height and alignment is preserved. There are no pars defects. The disc spaces are maintained. Minor facet arthropathy L5-S1. Sacroiliac joints are preserved IMPRESSION: Minor facet arthropathy L5-S1 copyright 2010 [employer]- All Rights Reserved
[2019-12-05 05:23] LABS: APPEARANCE,URINE CLEAR; BILIRUBIN,URINE NEGATIVE (NEGATIVE); COLOR,URINE YELLOW; GLUCOSE, URINE NEGATIVE (NEGATIVE); KETONES,URINE NEGATIVE (NEGATIVE); LEUKOCYTE ESTERASE,URINE NEGATIVE (NEGATIVE); NITRITE,URINE NEGATIVE (NEGATIVE); PROTEIN,URINE NEGATIVE (NEGATIVE); URINE SPECIFIC GRAVITY 1.006; UROBILINOGEN,URINE NEGATIVE mg/dL (<2.0)
[2019-12-05] MEDS ORDERED: KETOROLAC TROMETHAMINE INJ/PF 30 MG/1 ML SDV IV ONE (06:48)
[2019-12-05] MEDS ORDERED: METHYLPREDNISOLONE ACETATE INJ 40 MG/1 ML ML IM ONE (06:49)
[2019-12-05] MEDS ORDERED: METHOCARBAMOL INJ/PF 1000 MG/10 ML SDV IV ONE (06:50)
--- NOTE | 2019-12-05 07:28 | ER Document Report ---
ED General - General Chief Complaint: Low Back Pain Stated Complaint: SEVERE LOWER BACK PAIN Time Seen by Provider: 12/05/19 06:04 Primary Care Provider: BRENDA AGEE MD [ACTIVE PROVISIONAL STAFF] - Follow up as needed JUAN LIM FNP-C [Primary Care Provider] - Follow up as needed Mode of Arrival: Ambulatory Information source: Patient TRAVEL OUTSIDE OF THE [place] IN LAST 30 DAYS: No - HPI Onset: Other - Onset/Duration: Gradual Quality of pain: Sharp Severity: Severe Pain Level: 5 Associated symptoms: Other - Radiation of back pain down right leg. Right Leg also feels somewhat cold Exacerbated by: Movement, Walking Relieved by: Remaining still Similar symptoms previously: Yes - several times Recently seen / treated by doctor: No Notes: 44 year old female with a history of HTN, COPD, Herniated Lumbar Discs here in the ER for low back pain which started last when doing some heavy lifting. The patient says the pain is in her low back and radiates down her right leg. The patient says her right leg feels somewhat cool to her as well. The patient denies bowel bladder incontinence or saddle anesthesia. - Related Data Allergies/Adverse Reactions: No Known Allergies Allergy (Verified 12/04/18 11:23) Past Medical History - General Information source: Patient - Social History Smoking Status: Current Every Day Smoker Frequency of alcohol use: Occasional Drug Abuse: None Family History: Reviewed & Not Pertinent Patient has suicidal ideation: No Patient has homicidal ideation: No - Past Medical History Cardiac Medical History: Reports: Hx Hypertension - BORDERLINE Denies: Hx Coronary Artery Disease, Hx Heart Attack Pulmonary Medical History: Reports: Hx Asthma, Hx Bronchitis, Hx COPD Denies: Hx Pneumonia Neurological Medical History: Denies: Hx Cerebrovascular Accident, Hx Seizures Renal/ Medical History: Reports: Hx Kidney Stones. Denies: Hx Peritoneal Dialysis Musculoskeletal Medical History: Reports Hx Arthritis - ALL OVER, BACK SHOULDER HIP WRIST ELBOW Traumatic Medical History: Reports: Hx Fractures - C6C7, BACK IN 3 SPOTS, Hx Traumatic Brain Injury Past Surgical History: Reports: Hx Section, Hx Kidney (Renal Surgery), Hx Orthopedic Surgery, Hx Tubal Ligation - Immunizations Hx Diphtheria, Pertussis, Tetanus Vaccination: Yes - UTD; JULY 06 2018 Review of Systems - Review of Systems Constitutional: No symptoms reported EENT: No symptoms reported Cardiovascular: No symptoms reported Respiratory: No symptoms reported Gastrointestinal: No symptoms reported Genitourinary: No symptoms reported Female Genitourinary: No symptoms reported Musculoskeletal: Back pain Skin: No symptoms reported Hematologic/Lymphatic: No symptoms reported Neurological/Psychological: No symptoms reported -: Yes All other systems reviewed and negative Physical Exam - Vital signs Vitals: Temp Pulse Resp BP Pulse Ox 97.9 F 107 H 18 148/84 H 97 12/05/19 04:19 12/05/19 04:19 12/05/19 04:19 12/05/19 04:19 12/05/19 04:19 - Notes Notes: GENERAL: Well-nourished but in moderate distress HEAD: Atraumatic, normocephalic. EYES: Pupils equal round and reactive to light, extraocular movements intact, sclera anicteric, conjunctiva are normal. ENT: External ears normal, nares patent, oropharynx clear without exudates. Moist mucous membranes. NECK: Normal range of motion, supple without lymphadenopathy or JVD. LUNGS: Breath sounds clear to auscultation bilaterally and equal. No wheezes rales or rhonchi. HEART: Regular rate and rhythm without murmurs, rubs or gallops. ABDOMEN: Soft, nontender, normoactive bowel sounds. No guarding, no rebound. No masses appreciated. EXTREMITIES: No pitting or edema. No clubbing or cyanosis. 2+ DP and PT pulses in right foot. Pain in low back made worse with right leg movement/leg raises. BACK: Tender to palpation in lumbar region with no step offs. NEUROLOGICAL: No focal deficits. Normal speech, normal gait. PSYCH: Normal mood, normal affect. SKIN: Warm, Dry, normal turgor, no rashes or lesions noted. Course - Re-evaluation Re-evalutation: 12/05/19 07:32 The patient has acute onset of back pain which she feels is consistent with a herniated disc (she has experienced this previously). Patient treated in the ER with Toradol, Robaxin, and Depomedrol. 12/05/19 08:59 The patient is feeling better after treatment in the ER. She is able to ambulate. She will have her significant other pick her up. Will DC patient with scripts for Naproxen, Tramadol, Robaxin. - Vital Signs Vital signs: Temp Pulse Resp BP Pulse Ox 97.9 F 107 H 18 148/84 H 97 12/05/19 04:19 12/05/19 04:19 12/05/19 04:19 12/05/19 04:19 12/05/19 04:19 - Diagnostic Test Radiology reviewed: Image reviewed, Reports reviewed Discharge - Discharge Clinical Impression: Back pain Qualifiers: Back pain location: low back pain Chronicity: acute Back pain laterality: unspecified Sciatica presence: with sciatica Sciatica laterality: sciatica of right side Qualified Code(s): M54.41 - Lumbago with sciatica, right side Condition: Stable Disposition: HOME, SELF-CARE Instructions: Low Back Pain ([facility]) Additional Instructions: Use over the counter Tylenol and a Heating Pad for pain. Also use the prescribed Naproxen and Tramadol for pain. Use the prescribed Robaxin for muscle spasms. Follow up with your primary care doctor or an Orthopedic Surgeon if your back pain persists. Prescriptions: Naproxen 500 mg PO BID PRN #14 tablet PRN Reason: Methocarbamol [Robaxin 750 mg Tablet] 750 mg PO QID PRN #20 tablet PRN Reason: Tramadol HCl [Ultram 50 mg Tablet] 50 mg PO Q8H PRN #10 tab PRN Reason: Referrals: JUAN LIM FNP-C [Primary Care Provider] - Follow up as needed BRENDA AGEE MD [ACTIVE PROVISIONAL STAFF] - Follow up as needed
[2019-12-05 09:02] VITALS: BP 163/92
== END 2019-12-05 09:08 | disposition home or self-care (01) ==
LOC: ER 04:12
DX: M54.41 Lumbago with sciatica, right side (principal); X50.0XXA Overexertion from strenuous movement or load, initial encounter; I10 Essential (primary) hypertension; J44.9 Chronic obstructive pulmonary disease, unspecified; F17.200 Nicotine dependence, unspecified, uncomplicated; Z87.81 Personal history of (healed) traumatic fracture
CPT/HCPCS: 99283; 96372; 96375; 96365; 81025; 81001; 72110; J2800; J1030; J1885

== ENCOUNTER 2020-08-19 05:50 | Inpatient (IN) | payer BC ==
[2020-08-19] MEDS ORDERED: HYDROMORPHONE HCL INJ/PF 2 MG/ML AMPULE IV ONE ×2 (06:12→08:17)
[2020-08-19] MEDS ORDERED: PROMETHAZINE HCL INJ 25 MG/1 ML VIAL IV ONE (06:13)
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
[2020-08-19 06:46] LABS: ABSOLUTE BASOPHILS # (AUTO) 0.1 10^3/uL (0.0-0.2); ABSOLUTE EOSINOPHILS # (AUTO) 0.2 10^3/uL (0.0-0.6); ABSOLUTE LYMPHOCYTES (AUTO) 3.8 10^3/uL (0.5-4.7); ABSOLUTE MONOCYTES (AUTO) 0.9 10^3/uL (0.1-1.4); BASOPHILS % (AUTO) 0.6 % (0-2); EOSINOPHILS % (AUTO) 1.2 % (0-6); HEMATOCRIT 41.7 % (36.0-47.0); HEMOGLOBIN 14.5 g/dL (12.0-15.5); LYMPHOCYTES % (AUTO) 21.2 % (13-45); MEAN CORPUSCULAR HEMOGLOBIN 33.5 pg (27.0-33.4); MEAN CORPUSCULAR HGB CONC 34.7 g/dL (32.0-36.0); MEAN CORPUSCULAR VOLUME 97 fl (80-97); PLATELET COUNT 333 10^3/uL (150-450); RED BLOOD COUNT 4.33 10^6/uL (3.72-5.28); RED CELL DISTRIBUTION WIDTH 12.6 % (11.5-14.0); TOTAL CELLS COUNTED % (AUTO) 100 %; WHITE BLOOD COUNT 18.1 10^3/uL (4.0-10.5)
[2020-08-19 07:10] LABS: ALBUMIN 3.6 g/dL (3.5-5.0); ALKALINE PHOSPHATASE 66 U/L (38-126); ASPARTATE AMINO TRANSFERASE 22 U/L (14-36); BILIRUBIN,DIRECT 0.4 mg/dL (0.0-0.4); BILIRUBIN,TOTAL 0.7 mg/dL (0.2-1.3); BLOOD UREA NITROGEN 17 mg/dL (7-20); CALCIUM 9.7 mg/dL (8.4-10.2); GLUCOSE 106 mg/dL (75-110); POTASSIUM 4.4 mmol/L (3.6-5.0); TOTAL PROTEIN 6.3 g/dL (6.3-8.2)
[2020-08-19 07:15] LABS: CARBON DIOXIDE 29 mmol/L (22-30); CHLORIDE 102 mmol/L (98-107)
[2020-08-19 07:16] LABS: ANION GAP 3 (5-19)
--- NOTE | 2020-08-19 07:22 | RADIOLOGY REPORT (SQ) ---
EXAM DESCRIPTION: XR ABDOMEN SUPINE AND ERECT WITH CHEST (ABD ACUTE SERIES) COMPLETED DATE/TME: 08/19/2020 07:02 CLINICAL HISTORY: 45 years Female, abd pain n/v Comparison: None. NUMBER OF VIEWS/TECHNIQUE: 3 LIMITATIONS: None. FINDINGS: Intestinal gas pattern is within normal limits. Paucity of bowel gas. Colonic stool retention. Bone island of the left acetabulum. No suspicious calcification. Grossly intact skeletal structures. Prominent interstitium of the lower lung. IMPRESSION: No acute findings.
[2020-08-19 07:29] LABS: APPEARANCE,URINE CLEAR; BILIRUBIN,URINE NEGATIVE (NEGATIVE); COLOR,URINE STRAW; GLUCOSE, URINE NEGATIVE (NEGATIVE); KETONES,URINE NEGATIVE (NEGATIVE); LEUKOCYTE ESTERASE,URINE NEGATIVE (NEGATIVE); NITRITE,URINE NEGATIVE (NEGATIVE); PROTEIN,URINE NEGATIVE (NEGATIVE); URINE SPECIFIC GRAVITY 1.009; UROBILINOGEN,URINE NEGATIVE mg/dL (<2.0)
[2020-08-19] MEDS ORDERED: KETOROLAC TROMETHAMINE INJ/PF 30 MG/1 ML SDV IV ONE (08:17)
--- NOTE | 2020-08-19 09:28 | RADIOLOGY REPORT (SQ) ---
EXAM DESCRIPTION: CT ABD/PELVIS WITH IV ONLY IMAGES COMPLETED DATE/TIME: 08/19/2020 9:04 am REASON FOR STUDY: abd pain with vomiting COMPARISON: None. TECHNIQUE: CT scan of the abdomen and pelvis performed using helical scanning technique with dynamic intravenous contrast injection. No oral contrast. Images reviewed with lung, soft tissue, and bone windows. Reconstructed coronal and sagittal MPR images reviewed. Delayed images for evaluation of the urinary system also acquired. All images stored on PACS. All CT scanners at this facility use dose modulation, iterative reconstruction, and/or weight based d osing when appropriate to reduce radiation dose to as low as reasonably achievable (ALARA). [facility]: Dose Right [facility]: CareDose [facility]: Dose Right [facility]: Teradose 4D [facility]: Tintri CONTRAST TYPE AND DOSE: contrast/concentration: Isovue 350.00 mmol/ml; Total Contrast Delivered: 73. 0 ml; Total Saline Delivered: 66.0 ml RENAL FUNCTION: BUN 17 creatinine 0.75. RADIATION DOSE: CT Rad equipment meets quality standard of care and radiation dose reduction techniq ues were employed. CTDIvol: 4.2 - 4.2 mGy. DLP: 431 mGy-cm.. LIMITATIONS: None. FINDINGS: LOWER CHEST: No significant findings. No nodules or infiltrates. LIVER: Normal size. No masses. No dilated ducts. SPLEEN: Normal size. No focal lesions. PANCREAS: No masses. No significant calcifications. No adjacent inflammation or peripancreatic fluid collections. Pancreatic duct not dilated. GALLBLADDER: No identified stones by CT criteria. No inflammatory changes to suggest cholecystitis. ADRENAL GLANDS: No significant masses or asymmetry. RIGHT KIDNEY AND URETER: No solid masses. No significant calcifications. No hydronephrosis or hyd roureter. LEFT KIDNEY AND URETER: No solid masses. No significant calcifications. No hydronephrosis or hydr oureter. AORTA AND VESSELS: No aneurysm. No dissection. Renal arteries, SMA, celiac without stenosis. RETROPERITONEUM: No retroperitoneal adenopathy, hemorrhage or masses. BOWEL AND PERITONEAL CAVITY: Small amount of free air present under the diaphragm adjacent to the makenzie er. Small amount of free fluid. No visualized gross abnormality in the stomach or bowel. APPENDIX: Nondistended. Small amount of periappendiceal fluid but this appears to be due to general free fluid in the abdomen. PELVIS: No mass. Moderate free fluid. Normal bladder. ABDOMINAL WALL: No masses. No hernias. BONES: No significant or acute findings. OTHER: No other significant finding. IMPRESSION: FREE AIR AND MODERATE FREE FLUID. FINDINGS CONSISTENT WITH PERFORATED VISCUS. NO OTHER SIGNIFICANT FINDINGS. COMMENT: Pertinent findings on the imaging study reported as a CRITICAL RESULT to LUISA Haney at09:13 on 08/19/2020. Category of Critical Result: Abdominal free air. TECHNICAL DOCUMENTATION: JOB ID: [id number] Quality ID # [id number]: Final reports with documentation of one or more dose reduction techniques (e.g., Au tomated exposure control, adjustment of the mA and/or kV according to patient size, use of iterative reconstruction technique) 2010 [employer]- All Rights Reserved Reading location - IP/workstation name: [email or web address]
[2020-08-19] MEDS ORDERED: NORMAL SALINE 1000 ML 1,000 ML IV PRN (09:55)
[2020-08-19] MEDS ORDERED: LIDOCAINE 2% INJ-PF (20 MG/ML) 2 ML AMPUL ONE (10:16)
[2020-08-19] MEDS ORDERED: ONDANSETRON HCL INJ/PF 4 MG/2 ML SDV ONE (10:16)
[2020-08-19] MEDS ORDERED: NEOSTIGMINE METHYLSULFATE 10 MG/10 ML VIAL ONE (10:16)
[2020-08-19] MEDS ORDERED: ALBUTEROL SULFATE HFA (90 MCG/PUFF) 8 GM MDI IH ONE (10:16)
[2020-08-19] MEDS ORDERED: ROCURONIUM BROMIDE INJ 50 MG/5 ML VIAL IV ONE (10:16)
[2020-08-19] MEDS ORDERED: GLYCOPYRROLATE 1 MG/5 ML VIAL ONE (10:16)
[2020-08-19] MEDS ORDERED: DEXAMETHASONE SOD PHOSPHATE INJ 4 MG/1 ML VIAL ONE (10:16)
[2020-08-19] MEDS ORDERED: ONDANSETRON HCL INJ/PF 4 MG/2 ML SDV IV PRN (10:58)
[2020-08-19] MEDS ORDERED: ACETAMINOPHEN 1,000 MG/100 ML RTUPB IV ONE ×2 (11:00→17:00)
[2020-08-19] MEDS ORDERED: EPHEDRINE SULFATE INJ 50 MG/1 ML AMPULE ONE (11:01)
[2020-08-19] MEDS ORDERED: KETAMINE HCL INJ 500 MG/10 ML VIAL ONE (11:01)
[2020-08-19] MEDS ORDERED: MIDAZOLAM 2 MG/2 ML INJ ONE (11:01)
[2020-08-19] MEDS ORDERED: FENTANYL CITRATE INJ/PF 100 MCG/2 ML AMPUL ONE ×2 (11:01→14:11)
[2020-08-19] MEDS ORDERED: DEXMEDETOMIDINE INJ 80 MCG/20 ML VIAL IV ONE (11:02)
[2020-08-19] MEDS ORDERED: PROPOFOL INJ 200 MG/20 ML VIAL IV ONE (11:02)
[2020-08-19] MEDS ORDERED: CEFOXITIN 1 GM/D5W RTU 2 GM/100 ML RTUPB IV ONE (11:12)
[2020-08-19] MEDS ORDERED: BUPIVACAINE HCL 0.25 % INJ/PF (2.5 MG/1 ML) 30 ML VIAL ONE (11:16)
[2020-08-19] MEDS ORDERED: SUGAMMADEX SODIUM 200 MG/2 ML SDV IV ONE (11:30)
--- NOTE | 2020-08-19 12:16 | PDOC H&P ---
History of Present Illness Admission Date/PCP: MINERVA WEAVER Patient complains of: Abdominal pain, nausea, and vomiting History of Present Illness: ADENIKE SKELTON is a 45 year old female with a 2-day history of upper abdominal pain, accompanied by intermittent nausea and vomiting. The patient's pain is severe. He has progressively worsened over the last 48 hours. It is sharp, stabbing, and situated in the epigastrium. It radiates through to her back. The patient has a long history of lower back pain, and has been taking supra-normal doses of NSAIDs, along with steroids. She also drinks alcohol, smokes cigarettes, and uses a large amount of caffeine. The patient does not take any PPIs or H2 blockers for gastric mucosal protection. Currently she denies fevers, chills, headache, fatigue, melena, hematochezia, hematemesis. She does report severe abdominal pain, nausea, vomiting, malaise. Past Medical History Cardiac Medical History: Reports: Hypertension - BORDERLINE Denies: Coronary Artery Disease, Myocardial Infarction Pulmonary Medical History: Reports: Asthma, Bronchitis, Chronic Obstructive Pulmonary Disease (COPD) Denies: Pneumonia Neurological Medical History: Denies: Seizures Musculoskeltal Medical History: Reports: Arthritis - ALL OVER, BACK SHOULDER HIP WRIST ELBOW Traumatic Medical History: Reports: Traumatic Brain Injury Hematology: Reports: Anemia Past Surgical History Past Surgical History: Reports: Section, Orthopedic Surgery, Tubal Ligation Social History Lives with: Family Smoking Status: Current Every Day Smoker Frequency of Alcohol Use: Social Hx Recreational Drug Use: Yes Drugs: Marijuana Family History Family History: Reviewed & Not Pertinent Parental Family History Reviewed: Yes Children Family History Reviewed: Yes Sibling(s) Family History Reviewed.: Yes Medication/Allergy Home Medications: Albuterol Sulfate [Proair HFA Inhalation Aerosol 8.5 gm MDI] 2 puff IH Q4H PRN #1 mdi 07/06/18 Cephalexin Monohydrate [Keflex 500 mg Capsule] 500 mg PO BID 7 Days #14 capsule 07/06/18 Sulfamethoxazole/Trimethoprim [Bactrim Ds Tablet] 1 each PO BID 7 Days #14 tablet 07/06/18 Ibuprofen [Motrin 400 mg Tablet] 400 mg PO ASDIR PRN 07/09/18 Ketorolac Tromethamine [Toradol 10 mg Tablet] 10 mg PO Q6HP PRN #20 tablet 07/09/18 Cyclobenzaprine HCl [Flexeril 10 mg Tablet] 10 mg PO TIDP PRN #15 tab 12/04/18 Methocarbamol [Robaxin 750 mg Tablet] 750 mg PO QID PRN #20 tablet 12/05/19 Naproxen 500 mg PO BID PRN #14 tablet 12/05/19 Tramadol HCl [Ultram 50 mg Tablet] 50 mg PO Q8H PRN #10 tab 12/05/19 Allergies/Adverse Reactions: morphine Adverse Reaction (Verified 08/19/20 06:16) Review of Systems Constitutional: ABSENT: chills, fever(s), headache(s), weakness Eyes: ABSENT: visual disturbances Ears: ABSENT: hearing changes Nose, Mouth, and Throat: ABSENT: sore throat Cardiovascular: ABSENT: dyspnea on exertion Respiratory: ABSENT: cough, dyspnea Gastrointestinal: PRESENT: abdominal pain, nausea, vomiting. ABSENT: hematemesis, hematochezia, melena Genitourinary: ABSENT: dysuria Musculoskeletal: PRESENT: back pain Integumentary: ABSENT: pruritus, rash Neurological: ABSENT: confusion, convulsions, dizziness Psychiatric: ABSENT: anxiety Endocrine: ABSENT: cold intolerance, heat intolerance Hematologic/Lymphatic: ABSENT: easy bleeding, easy bruising Physical Exam Vital Signs: Temp Pulse Resp BP Pulse Ox 98.1 F 98 17 141/99 H 95 08/19/20 06:14 08/19/20 06:14 08/19/20 06:14 08/19/20 06:14 08/19/20 06:14 Intake & Output 08/18/20 08/19/20 08/20/20 06:59 06:59 06:59 Intake Total 100 Balance 100 Weight 63.503 kg General appearance: PRESENT: mild distress - Abdominal discomfort Head exam: PRESENT: atraumatic, normocephalic Eye exam: PRESENT: EOMI, PERRLA. ABSENT: scleral icterus Mouth exam: PRESENT: moist, neck supple Teeth exam: PRESENT: poor dentation Neck exam: ABSENT: meningismus, tenderness, thyromegaly, tracheal deviation Respiratory exam: PRESENT: unlabored. ABSENT: tachypnea, wheezes Cardiovascular exam: ABSENT: tachycardia GI/Abdominal exam: PRESENT: distended - Mild distention, guarding - Voluntary guarding in the upper abdominal quadrants, tenderness - Worse in the epigastrium Rectal exam: PRESENT: deferred Extremities exam: ABSENT: clubbing Musculoskeletal exam: ABSENT: deformity Neurological exam: PRESENT: alert, awake, oriented to person, oriented to place, oriented to time, oriented to situation, CN II-XII grossly intact. ABSENT: motor sensory deficit Psychiatric exam: ABSENT: agitated, anxious, depressed Focused psych exam: ABSENT: delusional Skin exam: ABSENT: cyanosis, jaundice Results Laboratory Results: 08/19/20 06:03 08/19/20 06:03 08/19/20 08/19/20 08/19/20 06:03 06:03 06:57 WBC 18.1 H RBC 4.33 Hgb 14.5 Hct 41.7 MCV 97 MCH 33.5 H MCHC 34.7 RDW 12.6 Plt Count 333 Seg Neutrophils % 72.0 Sodium 134.3 L Potassium 4.4 Chloride 102 Carbon Dioxide 29 Anion Gap 3 L BUN 17 Creatinine 0.75 Est GFR ( Amer) > 60 Glucose 106 Calcium 9.7 Total Bilirubin 0.7 AST 22 Alkaline Phosphatase 66 Total Protein 6.3 Albumin 3.6 Lipase 93.8 Urine Color STRAW Urine Appearance CLEAR Urine pH 6.0 Ur Specific [place] 1.009 Urine Protein NEGATIVE Urine Glucose (UA) NEGATIVE Urine Ketones NEGATIVE Urine Blood NEGATIVE Urine Nitrite NEGATIVE Ur Leukocyte Esterase NEGATIVE Urine WBC (Auto) 0 Urine RBC (Auto) 0 Impressions: Acute Abdomen Series 08/19/20 06:13 IMPRESSION: No acute findings. Abdomen/Pelvis CT 08/19/20 07:22 IMPRESSION: FREE AIR AND MODERATE FREE FLUID. FINDINGS CONSISTENT WITH PERFORATED VISCUS. NO OTHER SIGNIFICANT FINDINGS. Assessment & Plan - Diagnosis (1) Perforated abdominal viscus Is this a current diagnosis for this admission?: Yes - Time Anticipated Discharge Disposition: Home, Self Care Anticipated Discharge Timeframe: unknown - Plan Summary Plan Summary: 45-year-old female with severe abdominal pain, and evidence of free intra- abdominal air. She takes NSAIDs, steroids, smokes, drinks large amounts of caffeine, and consumes alcohol. In light of these factors, I believe she has a perforated gastric ulcer. Plan for laparotomy, with abdominal exploration. If a perforated gastric ulcer is identified, this will be repaired. I have discussed the possibility of finding other abnormalities. If the free air is from another etiology, bowel resection or other intervention may be necessary. The patient has expressed understanding. Risks and benefits of the surgical procedure were discussed at length with the patient and her family. Informed consent was obtained, and all questions were answered. Start Mefoxin and Diflucan.
[2020-08-19] MEDS: CEFOXITIN SODIUM 2 GM in DEXTROSE 5%-WATER 100 ML IV SCH ×2 (12:42→18:05)
[2020-08-19] MEDS ORDERED: FENTANYL CITRATE INJ/PF 100 MCG/2 ML AMPUL IV PRN ×2 (13:20)
[2020-08-19] MEDS ORDERED: MEPERIDINE HCL/PF INJ 25 MG/1 ML DISP.SYRIN IV PRN (13:20)
[2020-08-19] MEDS ORDERED: DIPHENHYDRAMINE HCL 50 MG/ML VIAL IV PRN (13:20)
[2020-08-19] MEDS ORDERED: PROMETHAZINE HCL INJ 25 MG/1 ML VIAL IV PRN ×2 (13:20)
[2020-08-19] MEDS ORDERED: HYDROMORPHONE HCL INJ/PF 2 MG/ML AMPULE IV PRN (13:23)
[2020-08-19] MEDS ORDERED: IPRATROPIUM/ALBUTEROL 0.5-2.5 MG/3 ML AMPUL NEB ONE ×2 (13:23→17:33)
[2020-08-19] MEDS ORDERED: ACETAMINOPHEN 1,000 MG/100 ML RTUPB IV SCH ×2 (14:00→22:00)
[2020-08-19] MEDS: FENTANYL CITRATE INJ/PF 100 MCG/2 ML AMPUL IV PRN ×2 (14:15→14:30)
--- NOTE | 2020-08-19 14:15 | Operative Report ---
Nonrecallable Operative Report DATE OF SURGERY: 08/19/20 PREOPERATIVE DIAGNOSIS: 1. Free intra-abdominal air. 2. Acute abdomen. POSTOPERATIVE DIAGNOSIS: Perforated prepyloric gastric ulcer OPERATION: 1. Exploratory laparotomy. 2. Oversew of perforated gastric ulcer. 3. Omental pedicle flap (Modified Idris patch). SURGEON: PEBBLES RECIO ANESTHESIA: GA TISSUE REMOVED OR ALTERED: Gastric ulcer for biopsy COMPLICATIONS: None apparent ESTIMATED BLOOD LOSS: 30 cc PROCEDURE: Drains/implants: 15 German round Nima drain over the repair. Procedure in detail: After informed consent was obtained, the patient was brought into the operating room and laid in the supine position. The area of the abdomen was prepped and draped in a normal sterile fashion. An incision was created from the xiphoid process, down to the umbilicus. Dissection was carried through the subcutaneous tissues using sharp and blunt dissection. The linea alba fascia was incised sharply, the abdomen was entered sharply. The Omni retractor was placed onto the patient. Upon entry into the abdomen there was turbid/bilious fluid present. The abdomen was then copiously irrigated to clear the turbid fluid. The abdomen was then serially inspected. The right lower quadrant was inspected. The cecum, ileocecal valve, and appendix were all normal. The ascending, transverse colon, descending colon, and sigmoid colon all appeared normal. The small bowel was inspected, and was free of obvious defect or perforation. The liver was retracted anteriorly, and the stomach and duodenum were inspected. There was a 1.5 cm perforation in the anterior, prepyloric position. There was no bile staining on the retroperitoneum or inside the lesser sac. The upper abdomen was irrigated and suctioned. Attention was then turned to repair of the perforated gastric ulcer. Multiple biopsies were taken circumferentially at the ulcer to ensure that no malignant component was present. The ulcer was then closed transversely. 0 silk suture was used to reapproximate the edges of the ulcer in simple interrupted fashion. The edges of the ulcer reapproximated without tension. The repair was tested, and found to be free of any leakage of air or liquid. The pylorus appeared to be open (this was ascertained using palpation). Once this was completed, attention was turned to performing of the modified Idris patch. The omentum was freed from the transverse colon. A pedicle flap of omentum was then created. The omental pedicle flap was then rotated anteriorly, and placed over the gastric repair. The omentum was then sutured to the anterior stomach using 0 silk suture in simple interrupted fashion, circumferentially. Once this was completed, a 15 German round Nima drain was placed through the right anterior abdominal wall. It was situated over the repair, between the stomach and liver. The drain was sutured to the skin using 2-0 nylon suture. Next, attention was turned to closure. The midline fascia was reapproximated using #1 double-stranded loop PDS suture in simple running fashion. The overlying skin was closed using skin yash. A dressing was placed, and the procedure was concluded. All sponge, instrument, and needle counts were correct x2. Condition: Stable.
[2020-08-19] MEDS: HYDROMORPHONE HCL INJ/PF 2 MG/ML AMPULE IV PRN ×2 (16:20→20:32)
[2020-08-19] MEDS ORDERED: NICOTINE 21 MG/24 HR PATCH.TD24 TD ONE (17:15)
[2020-08-19] MEDS: PANTOPRAZOLE SODIUM 40 MG VIAL IV SCH ×2 (17:55→21:21)
[2020-08-19] MEDS: ENOXAPARIN SODIUM INJ 40 MG/0.4 ML DISP.SYRIN SUBCUT SCH (17:57)
[2020-08-19] MEDS: FLUCONAZOLE 100 MG in CONTAINER,EMPTY 1 EACH IV SCH (17:58)
[2020-08-19] MEDS: NORMAL SALINE 1000 ML 1,000 ML IV PRN (18:08)
[2020-08-19] MEDS: ALBUTEROL SULFATE 0.083% NEB 2.5 MG/3 ML AMPUL NEB PRN (21:09)
[2020-08-20] MEDS: HYDROMORPHONE HCL INJ/PF 2 MG/ML AMPULE IV PRN ×7 (00:34→21:05)
[2020-08-20] MEDS: ACETAMINOPHEN 1,000 MG/100 ML RTUPB IV SCH ×3 (01:24→17:55)
[2020-08-20] MEDS: CEFOXITIN SODIUM 2 GM in DEXTROSE 5%-WATER 100 ML IV SCH ×3 (01:50→17:55)
[2020-08-20] MEDS: NORMAL SALINE 1000 ML 1,000 ML IV PRN ×3 (04:20→20:39)
[2020-08-20 07:21] LABS: HEMATOCRIT 33.7 % (36.0-47.0); MEAN CORPUSCULAR HEMOGLOBIN 34.1 pg (27.0-33.4); MEAN CORPUSCULAR VOLUME 97 fl (80-97); PLATELET COUNT 216 10^3/uL (150-450); RED BLOOD COUNT 3.46 10^6/uL (3.72-5.28); RED CELL DISTRIBUTION WIDTH 12.8 % (11.5-14.0)
[2020-08-20 07:35] LABS: BLOOD UREA NITROGEN 10 mg/dL (7-20); CALCIUM 8.2 mg/dL (8.4-10.2); CARBON DIOXIDE 22 mmol/L (22-30); CHLORIDE 106 mmol/L (98-107); GLUCOSE 120 mg/dL (75-110); POTASSIUM 4.2 mmol/L (3.6-5.0)
[2020-08-20 07:37] LABS: ANION GAP 3 (5-19)
[2020-08-20 07:59] LABS: HEMOGLOBIN 11.8 g/dL (12.0-15.5)
[2020-08-20 08:01] LABS: ABSOLUTE LYMPHOCYTES# (MANUAL) 0.8 10^3/uL (0.5-4.7); ABSOLUTE MONOCYTES # (MANUAL) 0.3 10^3/uL (0.1-1.4); BAND NEUTROPHILS % (MANUAL) 7 % (3-5); BASOPHILS % (MANUAL) 0 % (0-2); EOSINOPHILS % (MANUAL) 0 % (0-6); LYMPHOCYTES % (MANUAL) 6 % (13-45); MONOCYTES % (MANUAL) 2 % (3-13); SEGMENTED NEUTROPHILS % (MAN) 85 % (42-78); TOTAL CELLS COUNTED 100
[2020-08-20 08:02] LABS: PLATELET COMMENT ADEQUATE; RBC MORPHOLOGY COMMENT NORMO-CYTIC/CHROMIC; TOXIC GRANULATION 1+
[2020-08-20] MEDS: ALBUTEROL SULFATE 0.083% NEB 2.5 MG/3 ML AMPUL NEB PRN ×2 (08:03→15:33)
[2020-08-20] MEDS: NICOTINE 21 MG/24 HR PATCH.TD24 TD SCH (10:01)
[2020-08-20] MEDS: PANTOPRAZOLE SODIUM 40 MG VIAL IV SCH ×2 (10:01→21:06)
--- NOTE | 2020-08-20 10:01 | PDOC PROGRESS REPORT ---
Subjective Date:: 08/20/20 Subjective:: c/o incisional pain Reason For Visit: PERFORATED GASTRIC ULCER Physical Exam Vital Signs: Temp Pulse Resp BP Pulse Ox 98.1 F 89 20 121/74 98 08/20/20 07:26 08/20/20 08:03 08/20/20 08:03 08/20/20 07:26 08/20/20 08:03 Intake & Output 08/19/20 08/20/20 08/21/20 06:59 06:59 06:59 Intake Total 8050 Output Total 1535 90 Balance 6515 -90 Weight 63.503 kg 68.2 kg General appearance: PRESENT: mild distress Head exam: PRESENT: normocephalic Eye exam: PRESENT: EOMI Ear exam: PRESENT: normal external ear exam Mouth exam: PRESENT: moist Teeth exam: PRESENT: poor dentation Neck exam: PRESENT: full ROM Respiratory exam: PRESENT: prolonged expiratory phas, rhonchi, wheezes Cardiovascular exam: PRESENT: RRR Pulses: PRESENT: +2 pedal pulses bilateral Breast: PRESENT: Normal GI/Abdominal exam: PRESENT: soft - dressing intact chadwick serous Rectal exam: PRESENT: deferred Extremities exam: PRESENT: full ROM Musculoskeletal exam: PRESENT: full ROM Neurological exam: PRESENT: alert, awake, oriented to person, oriented to place Skin exam: PRESENT: dry Results Laboratory Results: 08/20/20 06:24 08/20/20 06:24 08/20/20 08/20/20 06:24 06:24 WBC 13.0 H RBC 3.46 L Hgb 11.8 L D Hct 33.7 L MCV 97 MCH 34.1 H MCHC 35.0 RDW 12.8 Plt Count 216 Seg Neutrophils % Not Reportable Sodium 131.1 L Potassium 4.2 Chloride 106 Carbon Dioxide 22 Anion Gap 3 L BUN 10 Creatinine 0.58 Est GFR ( Amer) > 60 Glucose 120 H Calcium 8.2 L Impressions: Acute Abdomen Series 08/19/20 06:13 IMPRESSION: No acute findings. Abdomen/Pelvis CT 08/19/20 07:22 IMPRESSION: FREE AIR AND MODERATE FREE FLUID. FINDINGS CONSISTENT WITH PERFOR ATED VISCUS. NO OTHER SIGNIFICANT FINDINGS. Assessment & Plan - Time Anticipated Discharge Disposition: Home, Self Care Anticipated Discharge Timeframe: unk - Plan Summary Plan Summary: s/p ex lap for perfed ulcer this am c/o incisonal pain difficulty coughing poor inspiratory effort and cough due to pain plan add pain meds abd binder encourage insentive spirometer
[2020-08-20] MEDS: ENOXAPARIN SODIUM INJ 40 MG/0.4 ML DISP.SYRIN SUBCUT SCH (10:02)
[2020-08-20] MEDS: FLUCONAZOLE 100 MG in CONTAINER,EMPTY 1 EACH IV SCH (13:31)
[2020-08-21] MEDS: HYDROMORPHONE HCL INJ/PF 2 MG/ML AMPULE IV PRN ×5 (00:11→21:12)
[2020-08-21] MEDS ORDERED: ACETAMINOPHEN 1,000 MG/100 ML RTUPB IV ONE ×2 (02:10→17:38)
[2020-08-21] MEDS: ACETAMINOPHEN 1,000 MG/100 ML RTUPB IV SCH ×3 (02:12→17:56)
[2020-08-21] MEDS ORDERED: DIPHENHYDRAMINE HCL 50 MG/ML VIAL IV ONE (02:30)
[2020-08-21] MEDS: CEFOXITIN SODIUM 2 GM in DEXTROSE 5%-WATER 100 ML IV SCH ×3 (02:59→17:57)
[2020-08-21] MEDS: NORMAL SALINE 1000 ML 1,000 ML IV PRN ×2 (04:10→16:47)
[2020-08-21] MEDS: NICOTINE 21 MG/24 HR PATCH.TD24 TD SCH (09:29)
[2020-08-21] MEDS: PANTOPRAZOLE SODIUM 40 MG VIAL IV SCH ×2 (09:29→21:55)
[2020-08-21] MEDS: ENOXAPARIN SODIUM INJ 40 MG/0.4 ML DISP.SYRIN SUBCUT SCH (09:31)
--- NOTE | 2020-08-21 10:11 | PDOC PROGRESS REPORT ---
Subjective Date:: 08/21/20 Subjective:: feels bettter today Reason For Visit: PERFORATED GASTRIC ULCER Physical Exam Vital Signs: Temp Pulse Resp BP Pulse Ox 97.5 F 81 18 144/103 H 100 08/21/20 09:02 08/21/20 08:24 08/21/20 08:24 08/21/20 08:24 08/21/20 08:24 Intake & Output 08/20/20 08/21/20 08/22/20 06:59 06:59 06:59 Intake Total 8050 3275 Output Total 1555 2227 Balance 6495 1048 Weight 68.2 kg 68 kg General appearance: PRESENT: no acute distress Head exam: PRESENT: normocephalic Eye exam: PRESENT: conjunctival injection Ear exam: PRESENT: normal external ear exam Mouth exam: PRESENT: moist Teeth exam: PRESENT: poor dentation Neck exam: PRESENT: full ROM Respiratory exam: PRESENT: clear to auscultation yeyo Cardiovascular exam: PRESENT: RRR Pulses: PRESENT: normal radial pulses, normal femoral pulses Vascular exam: PRESENT: normal capillary refill Breast: PRESENT: Normal GI/Abdominal exam: PRESENT: soft, other - incision with yash intact, clean, dry chadwick serous Rectal exam: PRESENT: deferred Gentrourinary exam: PRESENT: indwelling catheter Extremities exam: PRESENT: full ROM Musculoskeletal exam: PRESENT: ambulatory, full ROM Neurological exam: PRESENT: alert, awake, oriented to person, oriented to place Psychiatric exam: PRESENT: appropriate affect Skin exam: PRESENT: dry Results Laboratory Results: 08/20/20 06:24 08/20/20 06:24 08/19/20 06:57 Clean Catch Midstream Urine Culture - Final NO GROWTH 2 DAYS Impressions: Acute Abdomen Series 08/19/20 06:13 IMPRESSION: No acute findings. Abdomen/Pelvis CT 08/19/20 07:22 IMPRESSION: FREE AIR AND MODERATE FREE FLUID. FINDINGS CONSISTENT WITH PERFORATED VISCUS. NO OTHER SIGNIFICANT FINDINGS. Assessment & Plan - Time Anticipated Discharge Disposition: Home, Self Care Anticipated Discharge Timeframe: Unknown - Plan Summary Plan Summary: Postop day 3 status post exploratory laparotomy for perforated duodenal ulcer secondary to NSAIDs. Patient doing better this morning breathing better less short of breath able to ambulate now No flatus or stool at this point. Plan increase activity patient can start on ice chips We will continue Barros catheter secondary to the over distended bladder on her presentation. Possible removal of Barros tomorrow.
[2020-08-21 11:18] LABS: ABSOLUTE EOSINOPHILS # (AUTO) 0.1 10^3/uL (0.0-0.6); ABSOLUTE LYMPHOCYTES (AUTO) 0.7 10^3/uL (0.5-4.7); ABSOLUTE MONOCYTES (AUTO) 0.4 10^3/uL (0.1-1.4); ABSOLUTE NEUT (AUTO) 9.6 10^3/uL (1.7-8.2); BASOPHILS % (AUTO) 0.1 % (0-2); EOSINOPHILS % (AUTO) 0.6 % (0-6); HEMATOCRIT 32.4 % (36.0-47.0); HEMOGLOBIN 11.4 g/dL (12.0-15.5); LYMPHOCYTES % (AUTO) 6.7 % (13-45); MEAN CORPUSCULAR HEMOGLOBIN 34.6 pg (27.0-33.4); MEAN CORPUSCULAR HGB CONC 35.1 g/dL (32.0-36.0); MEAN CORPUSCULAR VOLUME 98 fl (80-97); MONOCYTES % (AUTO) 3.9 % (3-13); PLATELET COUNT 202 10^3/uL (150-450); RED BLOOD COUNT 3.29 10^6/uL (3.72-5.28); RED CELL DISTRIBUTION WIDTH 12.9 % (11.5-14.0); SEGMENTED NEUTROPHILS % (AUTO) 88.7 % (42-78); TOTAL CELLS COUNTED % (AUTO) 100 %; WHITE BLOOD COUNT 10.8 10^3/uL (4.0-10.5)
[2020-08-21] MEDS: DIPHENHYDRAMINE HCL 50 MG/ML VIAL IV PRN ×2 (14:38→20:58)
[2020-08-21] MEDS: FLUCONAZOLE 100 MG in CONTAINER,EMPTY 1 EACH IV SCH (14:39)
[2020-08-21] MEDS: ALBUTEROL SULFATE 0.083% NEB 2.5 MG/3 ML AMPUL NEB PRN (17:01)
[2020-08-22] MEDS: CEFOXITIN SODIUM 2 GM in DEXTROSE 5%-WATER 100 ML IV SCH ×3 (02:00→18:54)
[2020-08-22] MEDS: NORMAL SALINE 1000 ML 1,000 ML IV PRN (02:30)
[2020-08-22] MEDS ORDERED: ACETAMINOPHEN 1,000 MG/100 ML RTUPB IV ONE (02:55)
[2020-08-22] MEDS: ACETAMINOPHEN 1,000 MG/100 ML RTUPB IV SCH ×3 (03:00→18:49)
[2020-08-22] MEDS: HYDROMORPHONE HCL INJ/PF 2 MG/ML AMPULE IV PRN ×3 (06:00→20:27)
[2020-08-22 08:18] LABS: ABSOLUTE EOSINOPHILS # (AUTO) 0.1 10^3/uL (0.0-0.6); ABSOLUTE LYMPHOCYTES (AUTO) 0.7 10^3/uL (0.5-4.7); ABSOLUTE MONOCYTES (AUTO) 0.4 10^3/uL (0.1-1.4); ABSOLUTE NEUT (AUTO) 7.9 10^3/uL (1.7-8.2); BASOPHILS % (AUTO) 0.1 % (0-2); EOSINOPHILS % (AUTO) 0.8 % (0-6); HEMATOCRIT 33.5 % (36.0-47.0); HEMOGLOBIN 11.8 g/dL (12.0-15.5); LYMPHOCYTES % (AUTO) 7.6 % (13-45); MEAN CORPUSCULAR HEMOGLOBIN 34.4 pg (27.0-33.4); MEAN CORPUSCULAR HGB CONC 35.3 g/dL (32.0-36.0); MEAN CORPUSCULAR VOLUME 98 fl (80-97); MONOCYTES % (AUTO) 4.8 % (3-13); PLATELET COUNT 216 10^3/uL (150-450); RED BLOOD COUNT 3.44 10^6/uL (3.72-5.28); RED CELL DISTRIBUTION WIDTH 12.7 % (11.5-14.0); SEGMENTED NEUTROPHILS % (AUTO) 86.7 % (42-78); TOTAL CELLS COUNTED % (AUTO) 100 %; WHITE BLOOD COUNT 9.1 10^3/uL (4.0-10.5)
[2020-08-22 08:46] LABS: ANION GAP 10 (5-19); BLOOD UREA NITROGEN 11 mg/dL (7-20); CALCIUM 8.6 mg/dL (8.4-10.2); CARBON DIOXIDE 19 mmol/L (22-30); CHLORIDE 106 mmol/L (98-107); POTASSIUM 3.7 mmol/L (3.6-5.0)
[2020-08-22 08:57] LABS: GLUCOSE 58 mg/dL (75-110)
--- NOTE | 2020-08-22 09:01 | PDOC PROGRESS REPORT ---
Subjective Date:: 08/22/20 Reason For Visit: PERFORATED GASTRIC ULCER Patient coughing vigorously. Tolerated ice chips. Barros catheter still in. Pain reasonably well managed. Physical Exam Vital Signs: Temp Pulse Resp BP Pulse Ox 98.3 F 85 20 145/84 H 100 08/22/20 07:20 08/22/20 07:20 08/22/20 07:20 08/22/20 07:20 08/22/20 07:20 Intake & Output 08/21/20 08/22/20 08/23/20 06:59 06:59 06:59 Intake Total 3275 2200 Output Total 2229 5856 Balance 5908 -6321 Weight 68 kg General appearance: PRESENT: mild distress GI/Abdominal exam: PRESENT: other - Abdomen is soft. Midline incision approximated yash, dry and intact; serosanguineous discharge from drain, minimal. Results Laboratory Results: 08/22/20 08:07 08/22/20 08:07 08/21/20 08/22/20 08/22/20 10:44 08:07 08:07 WBC 10.8 H 9.1 RBC 3.29 L 3.44 L Hgb 11.4 L 11.8 L Hct 32.4 L 33.5 L MCV 98 H 98 H MCH 34.6 H 34.4 H MCHC 35.1 35.3 RDW 12.9 12.7 Plt Count 202 216 Seg Neutrophils % 88.7 H 86.7 H Sodium 134.8 L Potassium 3.7 Chloride 106 Carbon Dioxide 19 L Anion Gap 10 BUN 11 Creatinine 0.66 Est GFR ( Amer) > 60 Glucose 58 L Calcium 8.6 08/19/20 08:41 Blood Blood Culture (PCR) - Final Staphylococcus Species 08/19/20 06:57 Clean Catch Midstream Urine Culture - Final NO GROWTH 2 DAYS Impressions: Acute Abdomen Series 08/19/20 06:13 IMPRESSION: No acute findings. Abdomen/Pelvis CT 08/19/20 07:22 IMPRESSION: FREE AIR AND MODERATE FREE FLUID. FINDINGS CONSISTENT WITH PERFORATED VISCUS. NO OTHER SIGNIFICANT FINDINGS. Assessment & Plan - Diagnosis (1) Perforated abdominal viscus Plan: Impression: Patient is a 3 days status post exploratory laparotomy, oversewing of perforated peptic ulcer, doing well, no complications, no evidence of leak tolerating ice chips Plan: 1. We will start sips of clear liquids 2. DC Barros catheter 3. Leave TRAY drain in 4. We will continue IV antibiotics 5. Anticipate discharge home in 2 to 3 days if she continues to progress satisfactorily (2) COPD (chronic obstructive pulmonary disease) Is this a current diagnosis for this admission?: Yes (3) Chronic back pain Is this a current diagnosis for this admission?: Yes (4) Smoker Is this a current diagnosis for this admission?: Yes (5) Current use of steroid medication Is this a current diagnosis for this admission?: Yes - Time Anticipated Discharge Disposition: Home, Self Care Anticipated Discharge Timeframe: within 72 hours
[2020-08-22] MEDS: DEXTROSE 5%-LACTATED RINGERS 1,000 ML IV PRN ×2 (09:30→16:30)
[2020-08-22] MEDS: ENOXAPARIN SODIUM INJ 40 MG/0.4 ML DISP.SYRIN SUBCUT SCH (10:55)
[2020-08-22] MEDS: PANTOPRAZOLE SODIUM 40 MG VIAL IV SCH ×2 (10:59→21:29)
[2020-08-22] MEDS: NICOTINE 21 MG/24 HR PATCH.TD24 TD SCH (12:46)
[2020-08-22] MEDS: FLUCONAZOLE 100 MG in CONTAINER,EMPTY 1 EACH IV SCH (13:50)
[2020-08-22] MEDS: DIPHENHYDRAMINE HCL 50 MG/ML VIAL IV PRN ×2 (15:05→21:29)
[2020-08-23] MEDS: CEFOXITIN SODIUM 2 GM in DEXTROSE 5%-WATER 100 ML IV SCH ×3 (01:57→18:43)
[2020-08-23] MEDS: HYDROMORPHONE HCL INJ/PF 2 MG/ML AMPULE IV PRN ×5 (02:08→21:52)
[2020-08-23] MEDS: DEXTROSE 5%-LACTATED RINGERS 1,000 ML IV PRN (02:11)
[2020-08-23] MEDS: DIPHENHYDRAMINE HCL 50 MG/ML VIAL IV PRN (05:27)
[2020-08-23 08:03] LABS: ABSOLUTE EOSINOPHILS # (AUTO) 0.1 10^3/uL (0.0-0.6); ABSOLUTE LYMPHOCYTES (AUTO) 0.8 10^3/uL (0.5-4.7); ABSOLUTE MONOCYTES (AUTO) 0.5 10^3/uL (0.1-1.4); BASOPHILS % (AUTO) 0.1 % (0-2); EOSINOPHILS % (AUTO) 2.1 % (0-6); HEMATOCRIT 32.3 % (36.0-47.0); HEMOGLOBIN 11.4 g/dL (12.0-15.5); LYMPHOCYTES % (AUTO) 12.7 % (13-45); MEAN CORPUSCULAR HEMOGLOBIN 34.7 pg (27.0-33.4); MEAN CORPUSCULAR HGB CONC 35.4 g/dL (32.0-36.0); MEAN CORPUSCULAR VOLUME 98 fl (80-97); PLATELET COUNT 178 10^3/uL (150-450); RED BLOOD COUNT 3.29 10^6/uL (3.72-5.28); RED CELL DISTRIBUTION WIDTH 12.7 % (11.5-14.0); SEGMENTED NEUTROPHILS % (AUTO) 77.1 % (42-78); TOTAL CELLS COUNTED % (AUTO) 100 %; WHITE BLOOD COUNT 6.5 10^3/uL (4.0-10.5)
[2020-08-23 08:42] LABS: BLOOD UREA NITROGEN 7 mg/dL (7-20); CALCIUM 8.5 mg/dL (8.4-10.2); GLUCOSE 97 mg/dL (75-110); POTASSIUM 3.6 mmol/L (3.6-5.0)
[2020-08-23 08:48] LABS: ANION GAP 5 (5-19); CARBON DIOXIDE 25 mmol/L (22-30); CHLORIDE 104 mmol/L (98-107)
[2020-08-23] MEDS: ENOXAPARIN SODIUM INJ 40 MG/0.4 ML DISP.SYRIN SUBCUT SCH (10:16)
[2020-08-23] MEDS: LISINOPRIL 10 MG TABLET PO SCH (10:17)
[2020-08-23] MEDS: PANTOPRAZOLE SODIUM 40 MG VIAL IV SCH ×3 (10:18→21:52)
[2020-08-23] MEDS: NICOTINE 21 MG/24 HR PATCH.TD24 TD SCH (10:40)
--- NOTE | 2020-08-23 13:08 | PDOC PROGRESS REPORT ---
Subjective Date:: 08/23/20 Subjective:: Patient complaining of mid upper abdominal discomfort Reason For Visit: PERFORATED GASTRIC ULCER Physical Exam Vital Signs: Temp Pulse Resp BP Pulse Ox 97.8 F 63 21 H 149/80 H 100 08/23/20 11:06 08/23/20 11:06 08/23/20 11:06 08/23/20 11:06 08/23/20 11:06 Intake & Output 08/22/20 08/23/20 08/24/20 06:59 06:59 06:59 Intake Total 2300 3350 140 Output Total 5856 15 10 Balance -3556 3335 130 General appearance: PRESENT: no acute distress Respiratory exam: PRESENT: wheezes - Bilateral Cardiovascular exam: PRESENT: RRR GI/Abdominal exam: PRESENT: hypoactive bowel sounds, soft, other - Midline incision clean, dry, and intact, no peritoneal signs on palpation, slightly distended Results Laboratory Results: 08/23/20 07:55 08/23/20 07:55 08/23/20 08/23/20 07:55 07:55 WBC 6.5 RBC 3.29 L Hgb 11.4 L Hct 32.3 L MCV 98 H MCH 34.7 H MCHC 35.4 RDW 12.7 Plt Count 178 Seg Neutrophils % 77.1 Sodium 133.9 L Potassium 3.6 Chloride 104 Carbon Dioxide 25 Anion Gap 5 BUN 7 Creatinine 0.57 Est GFR ( Amer) > 60 Glucose 97 Calcium 8.5 08/19/20 08:41 Blood Blood Culture (PCR) - Final Staphylococcus Species Impressions: Acute Abdomen Series 08/19/20 06:13 IMPRESSION: No acute findings. Abdomen/Pelvis CT 08/19/20 07:22 IMPRESSION: FREE AIR AND MODERATE FREE FLUID. FINDINGS CONSISTENT WITH PERFORATED VISCUS. NO OTHER SIGNIFICANT FINDINGS. Assessment & Plan - Time Anticipated Discharge Disposition: Home, Self Care Anticipated Discharge Timeframe: within 72 hours - Plan Summary Plan Summary: Assessment: Postoperative day #4 after laparotomy and repair of perforated antral ulcer with patch Vital signs stable, patient afebrile Patient reports no return of bowel function yet Good urine output Nima drain output serous in type and less than 10 mL in 24 hours Work within normal limits Abdomen soft with midline incision clean dry intact Plan: Continue n.p.o. CT scan abdomen with water-soluble contrast today to rule out leak from repair; if negative for leak, patient's diet can be advanced to clear liquids diet Continue IV antibiotics and fluids Decrease Dilaudid amount Resume Ofirmev every 6 hours
--- NOTE | 2020-08-23 14:14 | RADIOLOGY REPORT (SQ) ---
EXAM DESCRIPTION: CT ABDOMEN ORAL CONTRAST ONLY IMAGES COMPLETED DATE/TIME: 08/23/2020 1:54 pm REASON FOR STUDY: Rule out gastric leak following ulcer repair COMPARISON: 08/19/2020. TECHNIQUE: CT scan of the abdomen performed without intravenous contrast and with oral contrast. Im ages reviewed with lung, soft tissue, and bone windows. Reconstructed coronal and sagittal MPR image s reviewed. All images stored on PACS. All CT scanners at this facility use dose modulation, iterative reconstruction, and/or weight based d osing when appropriate to reduce radiation dose to as low as reasonably achievable (ALARA). [facility]: Dose Right [facility]: CareDose [facility]: Dose Right [facility]: Teradose 4D [facility]: Smart ImageTag RADIATION DOSE: CT Rad equipment meets quality standard of care and radiation dose reduction techniq ues were employed. CTDIvol: 4.6 mGy. DLP: 152 mGy-cm.mGy. LIMITATIONS: None. FINDINGS: LOWER CHEST: Bilateral pleural effusions with atelectasis. NONCONTRASTED LIVER, SPLEEN, ADRENALS: Evaluation limited by lack of IV contrast. No identified sign ificant masses. PANCREAS: No masses. No peripancreatic inflammatory changes. GALLBLADDER: No identified stones by CT criteria. There is faint contrast in the lumen secondary to biliary excretion from previous intravenous contrast. No inflammatory changes to suggest cholecystit is. RIGHT KIDNEY AND URETER: No suspicious masses. Assessment limited by lack of IV contrast. No signif icant calcifications. No hydronephrosis or hydroureter. LEFT KIDNEY AND URETER: No suspicious masses. Assessment limited by lack of IV contrast. No signifi cant calcifications. No hydronephrosis or hydroureter. AORTA AND RETROPERITONEUM: No aneurysm. No retroperitoneal masses or adenopathy. BOWEL AND PERITONEAL CAVITY: Contrast is present in the stomach and small bowel. No contrast extrava sation. There is a percutaneous drainage catheter located between the liver and stomach. No abnorma l fluid collection or gas in the operative site. A few minimal bubbles of free air adjacent to the d iaphragm. APPENDIX: Not visualized. ABDOMINAL WALL: Midline skin yash. BONES: No significant findings. OTHER: No other significant finding. IMPRESSION: 1. CONTRAST PRESENT IN THE STOMACH AND SMALL BOWEL WITH NO EVIDENCE OF LEAKAGE OR EXTRAVASATION. AUSTEN GICAL DRAIN PRESENT BETWEEN THE STOMACH AND LIVER. NO EVIDENCE OF POSTOPERATIVE ABSCESS, HEMATOMA, O R OTHER COMPLICATION. 2. BILATERAL PLEURAL EFFUSIONS WITH ATELECTASIS IN THE LUNG BASES. 3. NO OTHER SIGNIFICANT OR ACUTE ABDOMINAL PROCESS. TECHNICAL DOCUMENTATION: JOB ID: [id number] Quality ID # [id number]: Final reports with documentation of one or more dose reduction techniques (e.g., Au tomated exposure control, adjustment of the mA and/or kV according to patient size, use of iterative reconstruction technique) 2010 [employer]- All Rights Reserved Reading location - IP/workstation name: [email or web address]
[2020-08-23] MEDS: FLUCONAZOLE 100 MG in CONTAINER,EMPTY 1 EACH IV SCH (14:18)
[2020-08-23] MEDS: ACETAMINOPHEN 1,000 MG/100 ML RTUPB IV SCH (18:04)
[2020-08-24] MEDS: ACETAMINOPHEN 1,000 MG/100 ML RTUPB IV SCH ×2 (00:37→06:17)
[2020-08-24] MEDS: CEFOXITIN SODIUM 2 GM in DEXTROSE 5%-WATER 100 ML IV SCH ×2 (02:51→09:47)
[2020-08-24] MEDS: HYDROMORPHONE HCL INJ/PF 2 MG/ML AMPULE IV PRN (04:03)
[2020-08-24] MEDS: PANTOPRAZOLE SODIUM 40 MG VIAL IV SCH ×2 (06:17→16:38)
[2020-08-24 06:27] LABS: ABSOLUTE EOSINOPHILS # (AUTO) 0.1 10^3/uL (0.0-0.6); ABSOLUTE LYMPHOCYTES (AUTO) 0.8 10^3/uL (0.5-4.7); ABSOLUTE MONOCYTES (AUTO) 0.5 10^3/uL (0.1-1.4); ABSOLUTE NEUT (AUTO) 3.7 10^3/uL (1.7-8.2); BASOPHILS % (AUTO) 0.3 % (0-2); EOSINOPHILS % (AUTO) 1.4 % (0-6); HEMATOCRIT 30.4 % (36.0-47.0); HEMOGLOBIN 10.8 g/dL (12.0-15.5); LYMPHOCYTES % (AUTO) 15.1 % (13-45); MEAN CORPUSCULAR HEMOGLOBIN 34.1 pg (27.0-33.4); MEAN CORPUSCULAR HGB CONC 35.5 g/dL (32.0-36.0); MEAN CORPUSCULAR VOLUME 96 fl (80-97); MONOCYTES % (AUTO) 10.6 % (3-13); PLATELET COUNT 173 10^3/uL (150-450); RED BLOOD COUNT 3.16 10^6/uL (3.72-5.28); RED CELL DISTRIBUTION WIDTH 12.7 % (11.5-14.0); SEGMENTED NEUTROPHILS % (AUTO) 72.6 % (42-78); TOTAL CELLS COUNTED % (AUTO) 100 %
[2020-08-24 06:45] LABS: BLOOD UREA NITROGEN 6 mg/dL (7-20); CARBON DIOXIDE 25 mmol/L (22-30); POTASSIUM 3.2 mmol/L (3.6-5.0)
[2020-08-24 06:58] LABS: CALCIUM 8.2 mg/dL (8.4-10.2); CHLORIDE 103 mmol/L (98-107); GLUCOSE 96 mg/dL (75-110)
[2020-08-24 06:59] LABS: ANION GAP 4 (5-19)
[2020-08-24] MEDS: LISINOPRIL 10 MG TABLET PO SCH (09:45)
[2020-08-24] MEDS: ENOXAPARIN SODIUM INJ 40 MG/0.4 ML DISP.SYRIN SUBCUT SCH (09:51)
--- NOTE | 2020-08-24 10:23 | PDOC PROGRESS REPORT ---
Subjective Date:: 08/24/20 Subjective:: Patient has no complaints, reports flatus, clear liquid diet tolerated Reason For Visit: PERFORATED GASTRIC ULCER Physical Exam Vital Signs: Temp Pulse Resp BP Pulse Ox 97.9 F 72 16 143/88 H 99 08/24/20 08:01 08/24/20 08:01 08/24/20 08:01 08/24/20 08:01 08/24/20 08:01 Intake & Output 08/23/20 08/24/20 08/25/20 06:59 06:59 06:59 Intake Total 3350 390 400 Output Total 15 1142 Balance 3335 -752 400 General appearance: PRESENT: no acute distress, thin Respiratory exam: PRESENT: clear to auscultation yeyo Cardiovascular exam: PRESENT: RRR GI/Abdominal exam: PRESENT: soft, other - Noted distended, not tender, hypoactive bowel sounds, midline incision clean, dry, and intact; right upper abdomen Nima drain filled with a scant amount of serous fluid Results Laboratory Results: 08/24/20 06:04 08/24/20 06:04 08/24/20 08/24/20 06:04 06:04 WBC 5.0 RBC 3.16 L Hgb 10.8 L Hct 30.4 L MCV 96 MCH 34.1 H MCHC 35.5 RDW 12.7 Plt Count 173 Seg Neutrophils % 72.6 Sodium 132.4 L Potassium 3.2 L Chloride 103 Carbon Dioxide 25 Anion Gap 4 L BUN 6 L Creatinine 0.52 Est GFR ( Amer) > 60 Glucose 96 Calcium 8.2 L 08/19/20 10:01 Blood Blood Culture - Final NO GROWTH IN 5 DAYS 08/19/20 08:41 Blood Blood Culture (PCR) - Final Staphylococcus Species Impressions: Acute Abdomen Series 08/19/20 06:13 IMPRESSION: No acute findings. Abdomen/Pelvis CT 08/19/20 07:22 IMPRESSION: FREE AIR AND MODERATE FREE FLUID. FINDINGS CONSISTENT WITH PERFORATED VISCUS. NO OTHER SIGNIFICANT FINDINGS. Abdomen CT 08/23/20 13:00 IMPRESSION: 1. CONTRAST PRESENT IN THE STOMACH AND SMALL BOWEL WITH NO EVIDENCE OF LEAKAGE OR EXTRAVASATION. SURGICAL DRAIN PRESENT BETWEEN THE STOMACH AND LIVER. NO EVIDENCE OF POSTOPERATIVE ABSCESS, HEMATOMA, OR OTHER COMPLICATION. 2. BILATERAL PLEURAL EFFUSIONS WITH ATELECTASIS IN THE LUNG BASES. 3. NO OTHER SIGNIFICANT OR ACUTE ABDOMINAL PROCESS. Assessment & Plan - Time Anticipated Discharge Disposition: Home, Self Care Anticipated Discharge Timeframe: within 24 hours - Plan Summary Plan Summary: Assessment: Postoperative day #5 after laparotomy and repair of perforated antral ulcer with patch Vital signs stable, patient afebrile Patient reports flatus Clear liquid diet tolerated Good urine output Nima drain output serous in type and less 5mL in 12 hours (10 mL during the pa st 24 hours) Blood work within normal limits except for hypokalemia CT scan abdomen with water-soluble contrast done yesterday is negative for leak from repair Abdomen soft with midline incision clean dry intact Plan: Full liquid diet dicontinue IV antibiotics and fluids Stop Dilaudid Tylenol oral for pain
[2020-08-24] MEDS: POTASSIUM CHLORIDE 20 MEQ PACKET PO SCH ×2 (12:11→21:30)
[2020-08-24] MEDS: ACETAMINOPHEN 325 MG TABLET PO PRN ×2 (13:13→19:13)
[2020-08-24] MEDS ORDERED: MAGNESIUM HYDROXIDE SUSP 30 ML UDCUP PO PRN (15:54)
[2020-08-24] MEDS: FLUCONAZOLE 100 MG in CONTAINER,EMPTY 1 EACH IV SCH (16:38)
[2020-08-24] MEDS ORDERED: BISACODYL 10 MG SUPP.RECT PR ONE ×2 (17:00→21:00)
[2020-08-24] MEDS: ALBUTEROL SULFATE 0.083% NEB 2.5 MG/3 ML AMPUL NEB PRN (23:03)
[2020-08-25] MEDS: ACETAMINOPHEN 325 MG TABLET PO PRN ×3 (00:19→14:43)
[2020-08-25] MEDS ORDERED: LISINOPRIL 10 MG TABLET PO SCH (05:45)
[2020-08-25 08:40] LABS: ABSOLUTE BASOPHILS # (AUTO) 0.1 10^3/uL (0.0-0.2); ABSOLUTE EOSINOPHILS # (AUTO) 0.1 10^3/uL (0.0-0.6); ABSOLUTE LYMPHOCYTES (AUTO) 1.2 10^3/uL (0.5-4.7); ABSOLUTE MONOCYTES (AUTO) 0.5 10^3/uL (0.1-1.4); ABSOLUTE NEUT (AUTO) 5.7 10^3/uL (1.7-8.2); BASOPHILS % (AUTO) 0.9 % (0-2); EOSINOPHILS % (AUTO) 1.3 % (0-6); HEMATOCRIT 36.1 % (36.0-47.0); MEAN CORPUSCULAR HEMOGLOBIN 34.5 pg (27.0-33.4); MEAN CORPUSCULAR HGB CONC 35.7 g/dL (32.0-36.0); MEAN CORPUSCULAR VOLUME 97 fl (80-97); PLATELET COUNT 234 10^3/uL (150-450); RED BLOOD COUNT 3.73 10^6/uL (3.72-5.28); RED CELL DISTRIBUTION WIDTH 12.7 % (11.5-14.0); SEGMENTED NEUTROPHILS % (AUTO) 74.8 % (42-78); TOTAL CELLS COUNTED % (AUTO) 100 %; WHITE BLOOD COUNT 7.6 10^3/uL (4.0-10.5)
[2020-08-25 08:56] LABS: HEMOGLOBIN 12.9 g/dL (12.0-15.5)
[2020-08-25 09:50] LABS: ANION GAP 10 (5-19); BLOOD UREA NITROGEN 5 mg/dL (7-20); CALCIUM 8.9 mg/dL (8.4-10.2); CARBON DIOXIDE 23 mmol/L (22-30); CHLORIDE 103 mmol/L (98-107); GLUCOSE 91 mg/dL (75-110); POTASSIUM 3.6 mmol/L (3.6-5.0)
[2020-08-25] MEDS: ENOXAPARIN SODIUM INJ 40 MG/0.4 ML DISP.SYRIN SUBCUT SCH (10:37)
[2020-08-25] MEDS: POTASSIUM CHLORIDE 20 MEQ PACKET PO SCH (10:38)
[2020-08-25 11:06] VITALS: BP 140/84
--- NOTE | 2020-08-25 13:54 | PDOC PROGRESS REPORT ---
Subjective Date:: 08/25/20 Subjective:: Complaints, full liquid diet well-tolerated Reason For Visit: PERFORATED GASTRIC ULCER Physical Exam Vital Signs: Temp Pulse Resp BP Pulse Ox 98.0 F 73 18 140/84 H 99 08/25/20 11:03 08/25/20 11:03 08/25/20 11:03 08/25/20 11:03 08/25/20 11:03 Intake & Output 08/24/20 08/25/20 08/26/20 06:59 06:59 06:59 Intake Total 390 1740 Output Total 1142 310 Balance -752 1430 Weight 66.7 kg General appearance: PRESENT: no acute distress, thin Respiratory exam: PRESENT: clear to auscultation yeyo Cardiovascular exam: PRESENT: RRR GI/Abdominal exam: PRESENT: soft, other - Noted distended, not tender, midline incision clean, dry, intact; right upper quadrant Nima drain filled with small amount of serous fluid Results Laboratory Results: 08/25/20 07:27 08/25/20 07:27 08/25/20 08/25/20 07:27 07:27 WBC 7.6 RBC 3.73 Hgb 12.9 D Hct 36.1 MCV 97 MCH 34.5 H MCHC 35.7 RDW 12.7 Plt Count 234 Seg Neutrophils % 74.8 Sodium 136.2 L Potassium 3.6 Chloride 103 Carbon Dioxide 23 Anion Gap 10 BUN 5 L Creatinine 0.55 Est GFR ( Amer) > 60 Glucose 91 Calcium 8.9 08/19/20 08:41 Blood Blood Culture (PCR) - Final Staphylococcus Species 08/19/20 08:41 Blood Blood Culture - Final Staphylococcus Capitis 08/19/20 10:01 Blood Blood Culture - Final NO GROWTH IN 5 DAYS Impressions: Acute Abdomen Series 08/19/20 06:13 IMPRESSION: No acute findings. Abdomen/Pelvis CT 08/19/20 07:22 IMPRESSION: FREE AIR AND MODERATE FREE FLUID. FINDINGS CONSISTENT WITH PERFORATED VISCUS. NO OTHER SIGNIFICANT FINDINGS. Abdomen CT 08/23/20 13:00 IMPRESSION: 1. CONTRAST PRESENT IN THE STOMACH AND SMALL BOWEL WITH NO EVIDENCE OF LEAKAGE OR EXTRAVASATION. SURGICAL DRAIN PRESENT BETWEEN THE STOMACH AND LIVER. NO EVIDENCE OF POSTOPERATIVE ABSCESS, HEMATOMA, OR OTHER COMPLICATION. 2. BILATERAL PLEURAL EFFUSIONS WITH ATELECTASIS IN THE LUNG BASES. 3. NO OTHER SIGNIFICANT OR ACUTE ABDOMINAL PROCESS. Assessment & Plan - Time Anticipated Discharge Disposition: Home, Self Care Anticipated Discharge Timeframe: today - Plan Summary Plan Summary: Assessment: Postoperative day #6 after laparotomy and repair of perforated antral ulcer with patch Vital signs stable, patient afebrile Patient reports flatus and stools today We will liquid diet tolerated Good urine output Nima drain output serous in type is scant (20 mL during the past 24 hours) Corrected hypokalemia Abdomen soft with midline incision clean dry intact Plan: Home today Augmentin 875 mg by mouth twice a day for 7 days Tylenol oral for pain Up with Dr. Baker in 1 week for staple removal Remove Nima drain today No straining lifting more than 10 pounds for 3 months Patient can shower immediately, patient can base following staple removal No wound care needed
--- NOTE | 2020-08-25 14:12 | PDOC DISCHARGE SUMMARY ---
General - Admit/Disc Date/PCP Admission Date/Primary Care Provider: 08/19/20 11:32 MINERVA WEAVER Discharge Date: 08/25/20 - Discharge Diagnosis Final Diagnosis: Perforated antral ulcer - Assessment Summary: The patient is a 45-year-old female, smoker, admitted with abdominal pain found to have free air on CT scan of the abdomen pelvis, she underwent immediate encephalotomy which revealed a perforated antral ulcer which was repaired primarily. The patient was admitted to the hospital kept n.p.o. and IV fluids and IV antibiotics. Her general condition is improved. On postop day #[address] scan abdomen pelvis with oral contrast which revealed no leak from the repaired perforated ulcer. Her diet was advanced from clears to full liquid diet. Her bowel function returned. Her blood work remained within normal limits. Her physical exam was unremarkable except for the abdomen slightly distended, hypoactive bowel sounds, soft, nontender, midline incision clean, dry, and intact. An intra-abdominal right upper quadrant Nima drain was placed near the area of the repair, the output was scant and on the day of discharge this was removed. The patient was discharged home on August 25, 2020 on Tylenol for pain and Augmentin 875 mL p.o. twice daily for 7 days. - Additional Information Resuscitation Status: Full Code Discharge Activity: Activity As Tolerated, No Lifting Over 10 Pounds - For 3 months, then slowly increase the workload, No tub bath - However, patient can shower immediately, the patient can base once the yash are removed Referrals: JUAN LIM FNP-C [Primary Care Provider] - Follow up as needed PEBBLES BAKER MD [ACTIVE STAFF] - 09/12/20 9:45 am (CALL THE OFFICE OF ANY QUESTIONS AND CONCERNS.) Prescriptions: Amoxicillin/Potassium Clav [Augmentin 875-125 Tablet] 1 tab PO BID #14 tab Pantoprazole Sodium [Protonix [address] Tablet] 40 mg PO TID 90 Days #270 tablet.dr Home Medications: Albuterol Sulfate [Proair HFA Inhalation Aerosol 8.5 gm MDI] 2 puff IH Q4HP PRN 08/19/20 Lisinopril [Prinivil] 10 mg PO QHS 08/19/20 Pregabalin [Lyrica 75 mg Capsule] 75 mg PO Q12 08/19/20 Tizanidine HCl 2 mg PO TID 08/19/20 Tizanidine HCl 6 mg PO TID 08/19/20 Acetaminophen [Tylenol 325 mg Tablet] 650 mg PO Q6HP PRN tablet 08/25/20 Amoxicillin/Potassium Clav [Augmentin 875-125 Tablet] 1 tab PO BID #14 tab 08/25/20 Lisinopril [Prinivil 10 mg Tablet] 10 mg PO DAILY tablet 08/25/20 Pantoprazole Sodium [Protonix [address] Tablet] 40 mg PO TID 90 Days #270 tablet. 08/25/20 Additional Information: Home today Augmentin 875 mg by mouth twice a day for 7 days Tylenol oral for pain Protonix 40 mg po TID x 3 months, then 40 mg daily x 12 months Resume all home medications Discontinue Mobic and all NSAIDs and anti-inflammatory agents (aspirin, Motrin, Aleve, etc.) as this can cause recurrence of the ulcer No alcohol, tobacco smoking, carbonated drinks, caffeinated drinks, chocolate, acidic drinks such as orange juice and lemonade time Nicorette patch or gums are okay Follow-Up with Dr. Baker in 1 week for staple removal No straining lifting more than 10 pounds for 3 months, then increase slowly Patient can shower immediately, patient can bathe following staple removal No wound care needed History of Present Illiness History of Present Illness: ADENIKE SKELTON is a 45 year old female Physical Exam Vital Signs: Temp Pulse Resp BP Pulse Ox 98.0 F 73 18 140/84 H 99 08/25/20 11:03 08/25/20 11:03 08/25/20 11:03 08/25/20 11:03 08/25/20 11:03 Intake & Output 08/24/20 08/25/20 08/26/20 06:59 06:59 06:59 Intake Total 390 1740 Output Total 1142 310 Balance -752 1430 Weight 66.7 kg Results Laboratory Results: WBC 7.6 10^3/uL (4.0-10.5) 08/25/20 07:27 RBC 3.73 10^6/uL (3.72-5.28) 08/25/20 07:27 Hgb 12.9 g/dL (12.0-15.5) D 08/25/20 07:27 Hct 36.1 % (36.0-47.0) 08/25/20 07:27 MCV 97 fl (80-97) 08/25/20 07:27 MCH 34.5 pg (27.0-33.4) H 08/25/20 07: MCHC 35.7 g/dL (32.0-36.0) 08/25/20 07: RDW 12.7 % (11.5-14.0) 08/25/20 07:27 Plt Count 234 10^3/uL (150-450) 08/25/20 07:27 Lymph % (Auto) 16.0 % (13-45) 08/25/20 07: [place] % (Auto) 7.0 % (3-13) 08/25/20 07: Eos % (Auto) 1.3 % (0-6) 08/25/20 07: Baso % (Auto) 0.9 % (0-2) 08/25/20 07: Absolute Neuts (auto) 5.7 10^3/uL (1.7-8.2) 08/25/20 07:27 Absolute Lymphs (auto) 1.2 10^3/uL (0.5-4.7) 08/25/20 07:27 Absolute Monos (auto) 0.5 10^3/uL (0.1-1.4) 08/25/20 07:27 Absolute Eos (auto) 0.1 10^3/uL (0.0-0.6) 08/25/20 07:27 Absolute Basos (auto) 0.1 10^3/uL (0.0-0.2) 08/25/20 07:27 Total Counted 100 08/20/20 06:24 Seg Neutrophils % 74.8 % (42-78) 08/25/20 07:27 Seg Neuts % (Manual) 85 % (42-78) H 08/20/20 06:24 Band Neutrophils % 7 % (3-5) H 08/20/20 06:24 Lymphocytes % (Manual) 6 % (13-45) L 08/20/20 06:24 Monocytes % (Manual) 2 % (3-13) L 08/20/20 06:24 Eosinophils % (Manual) 0 % (0-6) 08/20/20 06:24 Basophils % (Manual) 0 % (0-2) 08/20/20 06:24 Abs Neuts (Manual) 12.0 10^3/uL (1.7-8.2) H 08/20/20 06:24 Abs Lymphs (Manual) 0.8 10^3/uL (0.5-4.7) 08/20/20 06:24 Abs Monocytes (Manual) 0.3 10^3/uL (0.1-1.4) 08/20/20 06:24 Absolute Eos (Manual) 0.0 10^3/uL (0.0-0.6) 08/20/20 06:24 Abs Basophils (Manual) 0.0 10^3/uL (0.0-0.2) 08/20/20 06:24 Toxic Granulation 1+ 08/20/20 06:24 Platelet Comment ADEQUATE 08/20/20 06:24 RBC Morph Comment NORMO-CYTIC/CHROMIC 08/20/20 06:24 Sodium 136.2 mmol/L (137-145) L 08/25/20 07:27 Potassium 3.6 mmol/L (3.6-5.0) 08/25/20 07:27 Chloride 103 mmol/L (98-107) 08/25/20 07:27 Carbon Dioxide 23 mmol/L (22-30) 08/25/20 07:27 Anion Gap 10 (5-19) 08/25/20 07:27 BUN 5 mg/dL (7-20) L 08/25/20 07:27 Creatinine 0.55 mg/dL (0.52-1.25) 08/25/20 07:27 Est GFR ( Amer) > 60 (>60) 08/25/20 07:27 Est GFR (MDRD) Non-Af > 60 (>60) 08/25/20 07:27 Glucose 91 mg/dL (75-110) 08/25/20 07:27 POC Glucose 134 mg/dL (70-110) H 08/22/20 10:26 Calcium 8.9 mg/dL (8.4-10.2) 08/25/20 07:27 Total Bilirubin 0.7 mg/dL (0.2-1.3) 08/19/20 06:03 Direct Bilirubin 0.4 mg/dL (0.0-0.4) 08/19/20 06:03 Neonat Total Bilirubin Not Reportable 08/19/20 06:03 Neonat Direct Bilirubin Not Reportable 08/19/20 06:03 Neonat Indirect Bili Not Reportable 08/19/20 06:03 AST 22 U/L (14-36) 08/19/20 06:03 ALT 21 U/L (<35) 08/19/20 06:03 Alkaline Phosphatase 66 U/L (38-126) 08/19/20 06:03 Total Protein 6.3 g/dL (6.3-8.2) 08/19/20 06:03 Albumin 3.6 g/dL (3.5-5.0) 08/19/20 06:03 Lipase 93.8 U/L (23-300) 08/19/20 06:03 Urine Color STRAW 08/19/20 06:57 Urine Appearance CLEAR 08/19/20 06:57 Urine pH 6.0 (5.0-9.0) 08/19/20 06:57 Ur Specific [place] 1.009 08/19/20 06:57 Urine Protein NEGATIVE mg/dL (NEGATIVE) 08/19/20 06:57 Urine Glucose (UA) NEGATIVE mg/dL (NEGATIVE) 08/19/20 06:57 Urine Ketones NEGATIVE mg/dL (NEGATIVE) 08/19/20 06:57 Urine Blood NEGATIVE (NEGATIVE) 08/19/20 06:57 Urine Nitrite NEGATIVE (NEGATIVE) 08/19/20 06:57 Urine Bilirubin NEGATIVE (NEGATIVE) 08/19/20 06:57 Urine Urobilinogen NEGATIVE mg/dL (<2.0) 08/19/20 06:57 Ur Leukocyte Esterase NEGATIVE (NEGATIVE) 08/19/20 06:57 Urine WBC (Auto) 0 /HPF 08/19/20 06:57 Urine RBC (Auto) 0 /HPF 08/19/20 06:57 Urine Bacteria (Auto) TRACE /HPF 08/19/20 06:57 Squamous Epi Cells Auto 1 /HPF 08/19/20 06:57 Urine Mucus (Auto) RARE /LPF 08/19/20 06:57 Urine Ascorbic Acid NEGATIVE (NEGATIVE) 08/19/20 06:57 Influenza A (RT-PCR) NEGATIVE (NEGATIVE) 08/19/20 09:43 Influenza B (RT-PCR) NEGATIVE (NEGATIVE) 08/19/20 09:43 RSV (RT-PCR) NEGATIVE (NEGATIVE) 08/19/20 09:43 SARS-CoV-2 Rap RNA(RT-PCR) NEGATIVE (NEGATIVE) 08/19/20 09:43 Impressions: Acute Abdomen Series 08/19/20 06:13 IMPRESSION: No acute findings. Abdomen/Pelvis CT 08/19/20 07:22 IMPRESSION: FREE AIR AND MODERATE FREE FLUID. FINDINGS CONSISTENT WITH PERFORATED VISCUS. NO OTHER SIGNIFICANT FINDINGS. Abdomen CT 08/23/20 13:00 IMPRESSION: 1. CONTRAST PRESENT IN THE STOMACH AND SMALL BOWEL WITH NO EVIDENCE OF LEAKAGE OR EXTRAVASATION. SURGICAL DRAIN PRESENT BETWEEN THE STOMACH AND LIVER. NO EVIDENCE OF POSTOPERATIVE ABSCESS, HEMATOMA, OR OTHER COMPLICATION. 2. BILATERAL PLEURAL EFFUSIONS WITH ATELECTASIS IN THE LUNG BASES. 3. NO OTHER SIGNIFICANT OR ACUTE ABDOMINAL PROCESS.
== END 2020-08-25 14:53 | disposition home or self-care (01) | DRG 328 ==
LOC: ER 05:50 → EH 11:32 → 2N 15:31 → UNDODISIN 08-25 08:45
PROVIDERS: ADMIT Surgery; ATTEND Surgery
PROC: 0DU Gastrointestinal System, Supplement (ICD-10-PCS; 2020-08-19)
PROC: 0DB68ZX Excision of Stomach, Via Natural or Artificial Opening Endoscopic, Diagnostic (ICD-10-PCS; 2020-08-19)
PROC: 0DQ68ZZ Repair Stomach, Via Natural or Artificial Opening Endoscopic (ICD-10-PCS; principal; 2020-08-19 12:00)
DX: K25.5 Chronic or unspecified gastric ulcer with perforation (principal); I10 Essential (primary) hypertension; J44.9 Chronic obstructive pulmonary disease, unspecified; D64.9 Anemia, unspecified; F17.210 Nicotine dependence, cigarettes, uncomplicated; K59.00 Constipation, unspecified; Z79.899 Other long term (current) drug therapy; Z87.820 Personal history of traumatic brain injury; Z88.6 Allergy status to analgesic agent; Z79.1 Long term (current) use of non-steroidal anti-inflammatories (NSAID)
CPT/HCPCS: 36415; 74022; 74150; 74177; 790; 80048; 80053; 81001; 82962; 83690; 85025; 87040; 87077; 87086; 87150; 87186; 88305; 88341; 88342; 94640; 94799; 96374; 96375; 96376; 99140; 99285; 0241U; C1758; C9113; C9803; J0131; J0694; J1100; J1170; J1200; J1450; J1650; J1885; J2250; J2405; J2550; J2704; J2710; J3010; J3490; J7030; J7060; J7121; J7613